=== PATIENT | female | born 1955 | race Hispanic/Latino ===

== ENCOUNTER 2018-12-13 17:00 | Inpatient (IN) | payer OTHER ==
--- NOTE | 2018-12-13 17:35 | ED PDOC ---
Arrival/HPI - General Historian: Patient - History of Present Illness Narrative History of Present Illness (Text): 12/13/18 17:33 63 y/o female, no significant pmh, nkda, post menopausal, c/o abdominal pain/nausea/vomiting/diarrhea started early this morning. Pt. stated that she had take out food last night, woke up in the middle of the night with multipel episodes of nausea/vomiting/diarrhea along with generalized abdominal pain, admits dizziness after vomiting, no fever or chills, no headache or night sweat, no rash, no numbness or tingling, no palpitation, no chest pain, no other medical or psychological complaints. Past Medical History - Provider Review Nursing Documentation Reviewed: Yes - Infectious Disease Hx of Infectious Diseases: None - Psychiatric Hx Depression: No Hx Emotional Abuse: No Hx Physical Abuse: No Hx Substance Use: No - Surgical History Other/Comment: R FA surgery/cyst removal - Anesthesia Hx Anesthesia: Yes Hx Anesthesia Reactions: No Hx Malignant Hyperthermia: No - Suicidal Assessment Feels Threatened In Home Enviroment: No Family/Social History - Physician Review Nursing Documentation Reviewed: Yes Family/Social History: Unknown Family HX Smoking Status: Never Smoked Hx Alcohol Use: No Hx Substance Use: No Hx Substance Use Treatment: No Allergies/Home Meds Allergies/Adverse Reactions: Allergies No Known Allergies Allergy (Verified 09/17/12 09:28) Home Medications: Home Meds Medication Instructions Recorded Confirmed No Known Home Med 12/13/18 12/13/18 Review of Systems - Review of Systems Constitutional: Fatigue. absent: Fevers Eyes: absent: Vision Changes ENT: absent: Hearing Changes Respiratory: absent: SOB, Cough, Sputum Cardiovascular: absent: Chest Pain Gastrointestinal: Abdominal Pain, Diarrhea, Nausea, Vomiting Musculoskeletal: absent: Arthralgias, Back Pain Skin: absent: Rash, Pruritis Neurological: absent: Headache, Dizziness Psychiatric: absent: Anxiety, Depression, Suicidal Ideation Physical Exam Vital Signs Reviewed: Yes Pain Distress: Moderate - Systems Exam Head: Present: Atraumatic, Normocephalic Pupils: Present: PERRL Extroacular Muscles: Present: EOMI Conjunctiva: Present: Normal Mouth: Present: Moist Mucous Membranes Neck: Present: Normal Range of Motion Respiratory/Chest: Present: Clear to Auscultation, Good Air Exchange. No: Respiratory Distress, Accessory Muscle Use, Wheezes, Decreased Breath Sounds, Rales, Retracting, Rhonchi, Tachypneic, Tender to Palpation Cardiovascular: Present: Regular Rate and Rhythm, Normal S1, S2. No: Murmurs Abdomen: Present: Tenderness (generalized abdomen). No: Distention, Peritoneal Signs, Rebound, Guarding Back: Present: Normal Inspection Upper Extremity: Present: Normal Inspection. No: Cyanosis, Edema Lower Extremity: Present: Normal Inspection. No: Edema Neurological: Present: GCS=15, CN II-XII Intact, Speech Normal, Motor Func Grossly Intact, Gait Normal, Memory Normal Skin: Present: Warm, Dry, Normal Color. No: Rashes Psychiatric: Present: Alert, Oriented x 3, Normal Insight, Normal Concentration Medical Decision Making ED Course and Treatment: 12/13/18 17:47 -labs -CT abdomen and pelvis -EKG -IVF/pepcid/zofran -Observe and reasssess 12/13/18 18:14 -Pt. complaining of dizziness after multiple diarrhea/vomiting, meclizine added, no headache. 12/13/18 21:22 -EKG: NSR @ 90 BPM, no ST elevation or depression, no T wave inversion. -Labs show no acute findings except the following: Lipase 26720 (IVF/pepcid/morphine), amylase 2364 (consistent with pancreatitis), Bili 1.8 with AST 501 and ALT 445 (gallbladder sonogram ordered). -Coag panels are non-significant. -Triglyceride within normal limit. -CT Head No acute intracranial abnormality. -CT abdomen and pelvis Marked acute pancreatitis as described above. Questionable minimal acute cholecystitis. Previously described cholelithiasis noted on the ultrasound examination is not well visualized. CBD dilatation is again noted. A small hiatal hernia is present with mucosal edematous wall thickening of the hiatal hernia consistent with reflux esophagitis/vomiting. Diverticulosis coli of the descending and sigmoid colon without evidence of diverticulitis. A punctate non-obstructing calculus is seen in the lower left r enal pole. Minor atherosclerotic vascular plaquing. A 2.0 cm right ovarian cyst is noted. -Gallbladder sonogram: Gallstones and a distended gall bladder. Dilatation of the distal common bile duct of approximately 1.2 cm. Correlation with nuclear medicine hepatobiliary scan recommended. -Chest xray ER wet read: +RLL infiltrate noted. Rocephine and azithromycin ordered with blood cultures (aspiration??) -UA ordered and no result. -Pt. will need GI and further advancing studies for this dilated CBD. -Case discussed with the night medicine physician Dr. Vera, discussed about the case/labs/radiology result and agreed on the admission plus follow up on any pending labs/radiology studies. Pt. would need advance imaging/GI and surgical consult, discussed with Dr. Vera and medical sales associate, they would follow up the care and consult. - RAD Interpretation Radiology Orders: CT head: EXAM: CT Head without Intravenous Contrast. CLINICAL HISTORY: Dizziness, vomiting TECHNIQUE: Axial computed tomography images of the head/brain without intravenous contrast. 1103.19 mGy-cm COMPARISON: None provided. FINDINGS: BRAIN No acute intraparenchymal hemorrhage. No mass lesion. No CT evidence for acute territorial infarct. No midline shift or extra-axial collections. VENTRICLES: No hydrocephalus. ORBITS: The orbits are unremarkable. SINUSES AND MASTOIDS: The paranasal sinuses and mastoid air cells are clear. BONES: No fracture. SOFT TISSUES: Unremarkable. IMPRESSION: No acute intracranial abnormality. Electronically signed on Dec 13, 2018 8:15:30 PM EST by: Connor Scott M.D., MBA Certified By ABR & CBCCT Fellowship Trained MRI and CT Specialist CT abdomen and pelvis: EXAM: CT Abdomen and Pelvis with IV contrast CLINICAL HISTORY: Vomiting, abdominal pain TECHNIQUE: Axial computed tomography images of the abdomen and pelvis with intravenous contrast. 1154.27 mGy-cm CONTRAST: With; OMNI 350 100 ml COMPARISON: Comparison is made to previous right upper quadrant abdominal ultrasound evaluat ion performed earlier the same date. FINDINGS: LUNG BASES: The lung bases appear clear. No pleural effusions are seen. LIVER: Unremarkable. GALLBLADDER AND BILE DUCTS: The cholelithiasis identified on the previous ultrasound evaluation is not well identified. Some subtle pericholecystic edema is noted which may indicate acute cholecystitis. There is common biliary ductal dilatation also noted as previously described. PANCREAS: Diffuse peripancreatic inflammatory stranding/edema is noted consistent with marked acute pancreatitis. SPLEEN: Unremarkable. ADRENAL GLANDS: Unremarkable. KIDNEYS, URETERS, AND BLADDER: The kidneys appear within normal limits. There is no hydronephrosis or hydroureter. A punctate non-obstructing calculus is noted in the lower left renal pole. The urinary bladder is normal in size and configuration. STOMACH AND BOWEL: A small hiatal hernia is noted. Mucosal wall thickening is seen of the hiatal hernia indicative of reflux esophagitis. No evidence of bowel obstruction. No evidence suggesting enteritis. Diverticulosis coli is seen in the lower descending and sigmoid colon without evidence of diverticulitis. APPENDIX: No evidence of acute appendicitis on CT examination. PERITONEUM: No free fluid. No free air. LYMPH NODES: No lymphadenopathy is evident. REPRODUCTIVE: A 2.0 x 1.9 cm right ovarian cyst is noted. Otherwise, unremarkable as visualized. VASCULATURE: No evidence of abdominal aortic aneurysm. Minor atheromatous vascular plaquing is present. BONES: No aggressive appearing osseous lesion. No acute osseous pathology evident. IMPRESSION: 1. Marked acute pancreatitis as described above. 2. Questionable minimal acute cholecystitis. Previously described cholelithiasis noted on the ultrasound examination is not well visualized. CBD dilatation is again noted. 3. A small hiatal hernia is present with mucosal edematous wall thickening of the hiatal hernia consistent with reflux esophagitis/vomiting. 4. Diverticulosis coli of the descending and sigmoid colon without evidence of diverticulitis. 5. A punctate non-obstructing calculus is seen in the lower left renal pole. 6. Minor atherosclerotic vascular plaquing. 7. A 2.0 cm right ovarian cyst is noted. Electronically signed on Dec 13, 2018 8:40:05 PM EST by: Connor Scott M.D., JAMAR Certified By ABR & CBCCT Fellowship Trained MRI and CT Specialist Gallbladder sonogram: EXAM: US Abdomen, Right Upper Quadrant. CLINICAL HISTORY: Gb and hepatic r/o cholecystitis TECHNIQUE: Right upper quadrant sonography performed with image documentation. COMPARISON: None provided. FINDINGS: LIVER: Within normal limits in size and echogenicity. No mass. GALLBLADDER: The gallbladder appears distended with gallstones. There is no significant gallbladder wall thickening or pericholecystic fluid. COMMON BILE DUCT: There is dilatation of the distal common bile duct of approximately 1.2 cm.. PANCREAS: The distal pancreas is obscured by bowel gas. The visualized portion of the pancreas appears within normal limits. RIGHT KIDNEY: Unremarkable. Normal renal contours. No renal mass or calculus. No hydronephrosis. IMPRESSION: Gallstones and a distended gall bladder. Dilatation of the distal common bile duct of approximately 1.2 cm. Correlation with nuclear medicine hepatobiliary scan recommended. Electronically signed on Dec 13, 2018 8:02:31 PM EST by: Shahid Cedeno M.D., Certified by ABR, Diagnostic Radiology Chest xray: Dam Worker: Radiologist - EKG Interpretation EKG Interpretation (Text): 12/13/18 19:21 -EKG: NSR @ 90 BPM, no ST elevation or depression, no T wave inversion. Interpreted by ED Physician: Yes Type: 12 lead EKG - PA / DIRECTOR OF DISTRIBUTION / Resident Statement MD/DO has reviewed & agrees with the documentation as recorded. Disposition/Present on Arrival - Present on Arrival Any Indicators Present on Arrival: No History of DVT/PE: No History of Uncontrolled Diabetes: No Urinary Catheter: No History of Decub. Ulcer: No History Surgical Site Infection Following: None - Disposition Have Diagnosis and Disposition been Completed?: Yes Diagnosis: Pancreatitis, Transaminitis, Common bile duct dilatation, Cholelithiasis, Pneumonia Disposition: HOME/ ROUTINE Disposition Time: 20:12 Patient Plan: Admission, Observation Patient Problems: Current Active Problems Problem Status Onset Pancreatitis Acute Transaminitis Acute Common bile duct dilatation Acute Cholelithiasis Acute Condition: GUARDED
[2018-12-13] MEDS ORDERED: Sodium Chloride 0.9% 1,000 ML IV STA (17:59)
[2018-12-13 18:09] VITALS: BMI 26.6
[2018-12-13 18:16] LABS: BASO # 0.02 K/mm3 (0.0-2.0); BASO % 0.2 % (0.0-3.0); HEMOGLOBIN 14.5 g/dL (12.0-16.0); LYMPH # 1.1 (1.2-3.4); LYMPH % 10.1 % (22.0-35.0); MEAN CELL VOLUME 86.5 fl (80.0-105.0); MEAN CORPUSCULAR HEMOGLOBIN 28.8 pg (25.0-35.0); MEAN CORPUSCULAR HGB CONC 33.3 g/dl (31.0-37.0); MEAN PLATELET VOLUME 9.5 fl (7.0-11.0); MONO # 0.5 (0.1-0.6); MONO % 4.2 % (1.0-6.0); RBC 5.04 10^6/uL (3.5-6.1); RED CELL DISTRIBUTION WIDTH 13.3 % (11.5-14.5); WHITE BLOOD COUNT 10.7 10^3/uL (4.5-11.0)
[2018-12-13 18:29] LABS: ALB/GLOB RATIO 1.2 (1.1-1.8); ALT/SGPT 445 U/L (7-56); AST/SGOT 501 U/L (14-36); BLOOD UREA NITROGEN 15 mg/dL (7-21); CALCIUM 10.2 mg/dL (8.4-10.5); GFR NON-AFRICAN AMERICAN > 60
[2018-12-13 18:41] LABS: TROPONIN I < 0.01 ng/mL
[2018-12-13] MEDS ORDERED: Iohexol 350 MG/100 ML VIAL ONE (18:58)
[2018-12-13 19:01] LABS: LIPASE 24209 U/L (23-300)
[2018-12-13] MEDS ORDERED: Morphine 4 mg/ml ISec IVP STA (19:03)
[2018-12-13] MEDS ORDERED: Sodium Chloride 0.9% 500 ML IV STA (19:17)
[2018-12-13] MEDS ORDERED: Sodium Chloride 0.9% 1,000 ML IV SCH (19:30)
[2018-12-13 19:45] LABS: INR 1.08; PARTIAL THROMBOPLASTIN TIME 29.9 Seconds (26.9-38.3)
[2018-12-13 19:49] LABS: HDL CHOLESTEROL 76 mg/dL (29-60)
[2018-12-13 19:58] LABS: AMYLASE 2364 U/L (35-125); LDL CHOLESTEROL 118 mg/dL (0-129)
--- NOTE | 2018-12-13 21:47 | CP.PCM.HP ---
<Marisela Parada - Last Filed: 12/13/18 23:29> History of Present Illness - History of Present Illness History of Present Illness: Resident History & Physical for Hospitalist Service Patient is a 63 year old female with no significant past medical history presenting with chief complaint of epigastric abdominal pain which began last night and woke her up from sleep. Pain is constant and radiates to the back. Patient also admits to associated nausea, non bloody nonbilious vomiting, and four episodes of diarrhea. She denies headache, dizziness, fevers, chills, chest pain, shortness of breath, dysuria. PMH: none PSH: RUE cyst removal SHx: denies alcohol, tobacco, illicit drug use Allergies: NKDA PMD: none Present on Admission - Present on Admission Any Indicators Present on Admission: No Review of Systems - Review of Systems All systems: reviewed and no additional remarkable complaints except (as stated in HPI) Past Patient History - Infectious Disease Hx of Infectious Diseases: None - Past Social History Smoking Status: Never Smoked - PSYCHIATRIC Hx Depression: No Hx Emotional Abuse: No Hx Physical Abuse: No Hx Substance Use: No - SURGICAL HISTORY Other/Comment: R FA surgery/cyst removal - ANESTHESIA Hx Anesthesia: Yes Hx Anesthesia Reactions: No Hx Malignant Hyperthermia: No Meds Allergies/Adverse Reactions: Allergies Allergy/AdvReac Type Severity Reaction Status Date / Time No Known Allergies Allergy Verified 09/17/12 09:28 Physical Exam - Constitutional Appears: Non-toxic, No Acute Distress - Head Exam Head Exam: ATRAUMATIC, NORMOCEPHALIC - Eye Exam Eye Exam: EOMI, PERRL - ENT Exam ENT Exam: Mucous Membranes Moist - Neck Exam Neck exam: Positive for: Full Rom - Respiratory Exam Respiratory Exam: Clear to Auscultation Bilateral, NORMAL BREATHING PATTERN. absent: Rales, Rhonchi, Wheezes - Cardiovascular Exam Cardiovascular Exam: RRR, +S1, +S2. absent: Tachycardia - GI/Abdominal Exam GI & Abdominal Exam: Normal Bowel Sounds, Soft, Tenderness (LUQ). absent: Distended, Firm, Guarding, Rebound, Rigid - Extremities Exam Extremities exam: Positive for: normal capillary refill, normal inspection, pedal pulses present. Negative for: pedal edema, tenderness - Neurological Exam Neurological exam: Alert, CN II-XII Intact, Oriented x3 - Psychiatric Exam Psychiatric exam: Normal Affect, Normal Mood - Skin Skin Exam: Dry, Warm Results - Vital Signs Recent Vital Signs: Last Vital Signs Temp 98.3 F 12/13/18 17:49 Pulse 79 12/13/18 21:25 Resp 18 12/13/18 21:25 BP 135/61 12/13/18 21:25 Pulse Ox 98 12/13/18 21:25 - Labs Result Diagrams: 12/13/18 18:00 12/13/18 18:00 Labs: Laboratory Results - last 24 hr 12/13/18 12/13/18 12/13/18 18:00 18:00 18:35 WBC 10.7 RBC 5.04 Hgb 14.5 Hct 43.6 MCV 86.5 MCH 28.8 MCHC 33.3 RDW 13.3 Plt Count 238 MPV 9.5 Neut % (Auto) 85.5 H Lymph % (Auto) 10.1 L [place] % (Auto) 4.2 Eos % (Auto) 0.0 L Baso % (Auto) 0.2 Lymph # (Auto) 1.1 L [place] # (Auto) 0.5 Eos # (Auto) 0.0 Baso # (Auto) 0.02 Absolute Neuts (auto) 9.18 H PT INR APTT Sodium 141 Potassium 3.7 Chloride 104 Carbon Dioxide 29 Anion Gap 12 BUN 15 Creatinine 0.8 Est GFR ( Amer) > 60 Est GFR (Non-Af Amer) > 60 Random Glucose 147 H Calcium 10.2 Magnesium 2.0 Total Bilirubin 1.8 H AST 501 H ALT 445 H Alkaline Phosphatase 124 Troponin I < 0.01 Total Protein 9.3 H Albumin 5.0 H Globulin 4.2 Albumin/Globulin Ratio 1.2 Triglycerides 113 Cholesterol 240 H LDL Cholesterol Direct 118 HDL Cholesterol 76 H Amylase 2364 H Lipase 01889 H 12/13/18 18:35 WBC RBC Hgb Hct MCV MCH MCHC RDW Plt Count MPV Neut % (Auto) Lymph % (Auto) [place] % (Auto) Eos % (Auto) Baso % (Auto) Lymph # (Auto) [place] # (Auto) Eos # (Auto) Baso # (Auto) Absolute Neuts (auto) PT 12.0 INR 1.08 APTT 29.9 Sodium Potassium Chloride Carbon Dioxide Anion Gap BUN Creatinine Est GFR ( Amer) Est GFR (Non-Af Amer) Random Glucose Calcium Magnesium Total Bilirubin AST ALT Alkaline Phosphatase Troponin I Total Protein Albumin Globulin Albumin/Globulin Ratio Triglycerides Cholesterol LDL Cholesterol Direct HDL Cholesterol Amylase Lipase Assessment & Plan - Assessment and Plan (Free Text) Assessment: Patient is a 63 year old female with no significant past medical history presenting with chief complaint of epigastric abdominal pain with associated vomiting and diarrhea, admitted for workup and management of pancreatitis. Plan: Pancreatitis - NS 1.5 L and morphine given in ED - NPO - LR @ 100 ccs/hr - 15 mg Toradol IVP Q6 PRN for pain - 4 mg Zofran IV Q6 PRN - lipase in AM - GI and surgery consulted. Appreciate recs. CXR infiltrate - afebrile, no leukocytosis - patient denies cough - likely aspiration pneumonia - s/p Rocephin and azithromycin in ED - continue Rocephin and azithromycin - followup procal, cultures PPX - SCDs Case discussed with Dr. Jody Parada PGY-1 <Liane Vera - Last Filed: 12/14/18 00:13> Results - Vital Signs Recent Vital Signs: Last Vital Signs Temp 98.3 F 12/13/18 17:49 Pulse 81 12/13/18 23:35 Resp 16 12/13/18 23:35 BP 128/65 12/13/18 23:35 Pulse Ox 100 12/13/18 23:35 - Labs Result Diagrams: 12/13/18 18:00 12/13/18 18:00 Labs: Laboratory Results - last 24 hr 12/13/18 12/13/18 12/13/18 18:00 18:00 18:00 WBC 10.7 RBC 5.04 Hgb 14.5 Hct 43.6 MCV 86.5 MCH 28.8 MCHC 33.3 RDW 13.3 Plt Count 238 MPV 9.5 Neut % (Auto) 85.5 H Lymph % (Auto) 10.1 L [place] % (Auto) 4.2 Eos % (Auto) 0.0 L Baso % (Auto) 0.2 Lymph # (Auto) 1.1 L [place] # (Auto) 0.5 Eos # (Auto) 0.0 Baso # (Auto) 0.02 Absolute Neuts (auto) 9.18 H PT INR APTT Sodium 141 Potassium 3.7 Chloride 104 Carbon Dioxide 29 Anion Gap 12 BUN 15 Creatinine 0.8 Est GFR ( Amer) > 60 Est GFR (Non-Af Amer) > 60 Random Glucose 147 H Calcium 10.2 Magnesium 2.0 Total Bilirubin 1.8 H AST 501 H ALT 445 H Alkaline Phosphatase 124 Troponin I < 0.01 Total Protein 9.3 H Albumin 5.0 H Globulin 4.2 Albumin/Globulin Ratio 1.2 Triglycerides Cholesterol LDL Cholesterol Direct HDL Cholesterol Amylase Lipase 47498 H Alcohol, Quantitative < 10 12/13/18 12/13/18 18:35 18:35 WBC RBC Hgb Hct MCV MCH MCHC RDW Plt Count MPV Neut % (Auto) Lymph % (Auto) [place] % (Auto) Eos % (Auto) Baso % (Auto) Lymph # (Auto) [place] # (Auto) Eos # (Auto) Baso # (Auto) Absolute Neuts (auto) PT 12.0 INR 1.08 APTT 29.9 Sodium Potassium Chloride Carbon Dioxide Anion Gap BUN Creatinine Est GFR ( Amer) Est GFR (Non-Af Amer) Random Glucose Calcium Magnesium Total Bilirubin AST ALT Alkaline Phosphatase Troponin I Total Protein Albumin Globulin Albumin/Globulin Ratio Triglycerides 113 Cholesterol 240 H LDL Cholesterol Direct 118 HDL Cholesterol 76 H Amylase 2364 H Lipase Alcohol, Quantitative Attending/Attestation - Attestation I have personally seen and examined this patient.: Yes I have fully participated in the care of the patient.: Yes I have reviewed all pertinent clinical information: Yes
[2018-12-13] MEDS ORDERED: Azithromycin 500MG/NS 250ml 500 MG/250 ML BAG IVPB STA (22:45)
[2018-12-13] MEDS ORDERED: cefTRIAXone 1 gm 1 GM/100 ML BAG IVPB STA (22:45)
[2018-12-13] MEDS: Lactated Ringer's 1,000 ML IV SCH (23:06)
--- NOTE | 2018-12-14 00:11 | CP.PCM.CON ---
History of Present Illness - History of Present Illness History of Present Illness: General Surgery Consult Re: Acute pancreatitis HPI: 63F presented with epigastric abdominal pain associated with nausea and emesis of food which began last night and woke her up from sleep. Pain is constant and radiates to the back. + diarrhea x 4, no blood, dark color. Never had pain so severe before. Denies headache, dizziness, fevers, chills, chest pain, SOB, dysuria, hematuria, hematemesis, hematochezia, melena. PMH: Denies PSH: R forearm cyst removal SH: Denies tobacco, EtOH and drug use FH: Noncontributory All: NKDA Meds: Denies Review of Systems - Review of Systems All systems: reviewed and no additional remarkable complaints except (as per HPI) Past Patient History - Infectious Disease Hx of Infectious Diseases: None - Past Social History Smoking Status: Never Smoked - PSYCHIATRIC Hx Depression: No Hx Emotional Abuse: No Hx Physical Abuse: No Hx Substance Use: No - SURGICAL HISTORY Other/Comment: R FA surgery/cyst removal - ANESTHESIA Hx Anesthesia: Yes Hx Anesthesia Reactions: No Hx Malignant Hyperthermia: No Meds Allergies/Adverse Reactions: Allergies Allergy/AdvReac Type Severity Reaction Status Date / Time No Known Allergies Allergy Verified 09/17/12 09:28 - Medications Medications: Current Medications Azithromycin (Zithromax 500mg In Ns) 500 mg in 250 mls @ 167 mls/hr IVPB STAT STA; Protocol Stop: 12/14/18 00:14 Lactated Ringer's (Lactated Ringer's) 1,000 mls @ 100 mls/hr IV .Q10H SHAE Last Admin: 12/13/18 23:06 Dose: 100 mls/hr Ceftriaxone Sodium (Rocephin 1 Gram Ivpb) 1 gm in 100 mls @ 100 mls/hr IVPB DAILY SHAE; Protocol Azithromycin 250 mg/ Sodium (Chloride) 250 mls @ 167 mls/hr IVPB DAILY SHAE; Protocol Ketorolac Tromethamine (Toradol) 15 mg IVP Q6 PRN PRN Reason: Pain, moderate (4-7) Ondansetron HCl (Zofran Inj) 4 mg IVP Q4H PRN PRN Reason: Nausea/Vomiting Pantoprazole Sodium (Protonix Inj) 40 mg IVP DAILY SHAE Physical Exam - Constitutional Appears: Non-toxic, No Acute Distress - Head Exam Head Exam: ATRAUMATIC, NORMOCEPHALIC - Eye Exam Eye Exam: EOMI. absent: Scleral icterus - ENT Exam ENT Exam: Mucous Membranes Dry Additional comments: trachea midline - Neck Exam Neck exam: Positive for: Full Rom. Negative for: Lymphadenopathy - Respiratory Exam Respiratory Exam: NORMAL BREATHING PATTERN. absent: Accessory Muscle Use, Respiratory Distress - Cardiovascular Exam Cardiovascular Exam: +S1, +S2 - GI/Abdominal Exam GI & Abdominal Exam: Soft, Tenderness (in epigastrum and R back). absent: Distended, Firm, Guarding, Rebound, Rigid - Rectal Exam Rectal Exam: Deferred - Extremities Exam Extremities exam: Positive for: normal capillary refill, pedal pulses present. Negative for: calf tenderness - Back Exam Back exam: CVA tenderness (R) (mild). absent: CVA tenderness (L) - Neurological Exam Neurological exam: Alert, Oriented x3 - Skin Skin Exam: Dry, Warm Results - Vital Signs Recent Vital Signs: Last Vital Signs Temp 98.3 F 12/13/18 17:49 Pulse 81 12/13/18 23:35 Resp 16 12/13/18 23:35 BP 128/65 12/13/18 23:35 Pulse Ox 100 12/13/18 23:35 - Labs Result Diagrams: 12/13/18 18:00 12/13/18 18:00 Labs: Laboratory Results - last 24 hr 12/13/18 12/13/18 12/13/18 18:00 18:00 18:00 WBC 10.7 RBC 5.04 Hgb 14.5 Hct 43.6 MCV 86.5 MCH 28.8 MCHC 33.3 RDW 13.3 Plt Count 238 MPV 9.5 Neut % (Auto) 85.5 H Lymph % (Auto) 10.1 L [place] % (Auto) 4.2 Eos % (Auto) 0.0 L Baso % (Auto) 0.2 Lymph # (Auto) 1.1 L [place] # (Auto) 0.5 Eos # (Auto) 0.0 Baso # (Auto) 0.02 Absolute Neuts (auto) 9.18 H PT INR APTT Sodium 141 Potassium 3.7 Chloride 104 Carbon Dioxide 29 Anion Gap 12 BUN 15 Creatinine 0.8 Est GFR ( Amer) > 60 Est GFR (Non-Af Amer) > 60 Random Glucose 147 H Calcium 10.2 Magnesium 2.0 Total Bilirubin 1.8 H AST 501 H ALT 445 H Alkaline Phosphatase 124 Troponin I < 0.01 Total Protein 9.3 H Albumin 5.0 H Globulin 4.2 Albumin/Globulin Ratio 1.2 Triglycerides Cholesterol LDL Cholesterol Direct HDL Cholesterol Amylase Lipase 08008 H Alcohol, Quantitative < 10 12/13/18 12/13/18 18:35 18:35 WBC RBC Hgb Hct MCV MCH MCHC RDW Plt Count MPV Neut % (Auto) Lymph % (Auto) [place] % (Auto) Eos % (Auto) Baso % (Auto) Lymph # (Auto) [place] # (Auto) Eos # (Auto) Baso # (Auto) Absolute Neuts (auto) PT 12.0 INR 1.08 APTT 29.9 Sodium Potassium Chloride Carbon Dioxide Anion Gap BUN Creatinine Est GFR ( Amer) Est GFR (Non-Af Amer) Random Glucose Calcium Magnesium Total Bilirubin AST ALT Alkaline Phosphatase Troponin I Total Protein Albumin Globulin Albumin/Globulin Ratio Triglycerides 113 Cholesterol 240 H LDL Cholesterol Direct 118 HDL Cholesterol 76 H Amylase 2364 H Lipase Alcohol, Quantitative - Imaging and Cardiology CT scan - abdomen Status: Image reviewed by me, Report reviewed by me US - abdomen Status: Image reviewed by me, Report reviewed by me Assessment & Plan - Assessment and Plan (Free Text) Assessment: 63F with acute pancreatitis, from repeated emesis vs gallstone Plan: No signs of cholecystitis or biliary obstruction at this time. Monitor labs IVF Analgesia Zofran Will plan for possible OR after symptoms resolve Will D/W Dr. Julio Cesar Be PGY4
[2018-12-14 07:17] LABS: BASO # 0.01 K/mm3 (0.0-2.0); BASO % 0.1 % (0.0-3.0); EOS % 0.4 % (1.5-5.0); LYMPH # 1.9 (1.2-3.4); LYMPH % 21.3 % (22.0-35.0); MEAN CELL VOLUME 86.8 fl (80.0-105.0); MEAN CORPUSCULAR HEMOGLOBIN 28.7 pg (25.0-35.0); MEAN CORPUSCULAR HGB CONC 33.1 g/dl (31.0-37.0); MEAN PLATELET VOLUME 9.6 fl (7.0-11.0); MONO # 0.6 (0.1-0.6); MONO % 6.7 % (1.0-6.0); RBC 4.25 10^6/uL (3.5-6.1); RED CELL DISTRIBUTION WIDTH 13.7 % (11.5-14.5)
[2018-12-14 07:25] LABS: HEMOGLOBIN 12.2 g/dL (12.0-16.0)
[2018-12-14 07:39] LABS: ALB/GLOB RATIO 1.2 (1.1-1.8); ALBUMIN 4.1 g/dL (3.0-4.8); ALT/SGPT 389 U/L (7-56); AST/SGOT 302 U/L (14-36); BLOOD UREA NITROGEN 11 mg/dL (7-21); CALCIUM 9.1 mg/dL (8.4-10.5); GFR NON-AFRICAN AMERICAN > 60
[2018-12-14 08:10] LABS: LIPASE 7844 U/L (23-300)
--- NOTE | 2018-12-14 08:31 | CT ---
Date of service: 12/13/2018 PROCEDURE: CT HEAD WITHOUT CONTRAST. HISTORY: Dizziness and vomiting. COMPARISON: None available. TECHNIQUE: Axial computed tomography images were obtained through the head/brain without intravenous contrast. Supplemental Coronal and Sagittal projections created and reviewed. Radiation dose: Total exam DLP = 1103.19 mGy-cm. This CT exam was performed using one or more of the following dose reduction techniques: Automated exposure control, adjustment of the mA and/or kV according to patient size, and/or use of iterative reconstruction technique. FINDINGS: HEMORRHAGE: No intracranial hemorrhage. BRAIN: No mass effect or edema. No atrophy or chronic microvascular ischemic changes. VENTRICLES: Unremarkable. No hydrocephalus. CALVARIUM: Unremarkable. PARANASAL SINUSES: Unremarkable as visualized. No significant inflammatory changes. MASTOID AIR CELLS: Unremarkable as visualized. No inflammatory changes. OTHER FINDINGS: None. IMPRESSION: No acute intracranial abnormalities. No significant findings to account for the clinical presentation. Concordant results (preliminary interpretation) provided by [id number]. Procedure Completed: 19:51. Preliminary Report: Dictated and Authenticated: 20:15. Final Interpretation: 08:28. December 14, 2018
[2018-12-14] MEDS: Sodium Chloride 0.9% 1,000 ML IV SCH ×3 (08:34→23:00)
--- NOTE | 2018-12-14 08:44 | CT ---
Date of service: 12/13/2018 PROCEDURE: CT Abdomen and Pelvis with contrast HISTORY: generalized abdominal pain, n/v/d COMPARISON: 2018. Abdominal ultrasound TECHNIQUE: Intravenous contrast dose: 100 cc Omnipaque 350. Radiation dose: Total exam DLP = 1154.27 mGy-cm. This CT exam was performed using one or more of the following dose reduction techniques: Automated exposure control, adjustment of the mA and/or kV according to patient size, and/or use of iterative reconstruction technique. FINDINGS: LOWER THORAX: Unremarkable. LIVER: Mild hepatic steatosis. Dilatation of intrahepatic biliary radicles. Dilated common bile duct. No visible common duct stones. GALLBLADDER AND BILE DUCTS: Cholelithiasis without CT evidence of acute cholecystitis. PANCREAS: Edematous pancreas, peripancreatic fluid. Findings indicate acute pancreatitis. No CT evidence of necrotizing pancreatitis. SPLEEN: Unremarkable. ADRENALS: Unremarkable. No mass. KIDNEYS AND URETERS: Unremarkable. No hydronephrosis. No solid mass. Incidental finding(s): Nonobstructing 2 mm calculus lower pole left kidney. VASCULATURE: Unremarkable. No aortic aneurysm. No atherosclerotic calcification or mural plaque present. BOWEL: Diverticulosis without an acute inflammatory component or other associated pathologic process. APPENDIX: No abnormalities to suggest acute appendicitis. No right lower quadrant inflammatory processes identified. PERITONEUM: Unremarkable. No free fluid. No free air. LYMPH NODES: Unremarkable. No enlarged lymph nodes. BLADDER: Unremarkable. REPRODUCTIVE: Unremarkable. BONES: No acute fracture. OTHER FINDINGS: None. IMPRESSION: Acute/severe pancreatitis. No evidence of necrotizing pancreatitis. Cholelithiasis without CT evidence of acute cholecystitis. Dilated common bile duct and intrahepatic biliary radicles without visible intraductal obstructing lesion. Additional benign and/or incidental findings described above. Concordant results (preliminary interpretation) provided by [facility] [employer] Procedure Completed: 19:57. Preliminary Report: Dictated and Authenticated: 20:40. Final Interpretation: 08:40. December 14, 2018
--- NOTE | 2018-12-14 09:22 | CARD ---
APPROVED REPORT Date of service: 12/13/2018 EKG Measurement Heart [id number] [id number] <Conclusion> Poor data quality, interpretation may be adversely affected Normal sinus rhythm Normal ECG
--- NOTE | 2018-12-14 09:48 | US ---
Date of service: 12/13/2018 HISTORY: evaluate for any cholecystitis COMPARISON: 2018. CT abdomen and pelvis TECHNIQUE: Sonographic evaluation of the right upper quadrant of the abdomen. FINDINGS: LIVER: Measures 15.0 cm in length. Normal echogenicity of the liver parenchyma. No mass. No intrahepatic bile duct dilatation. GALLBLADDER: Cholelithiasis. Negative study for gallbladder wall thickening, pericholecystic fluid, sonographic Hearn's sign. Distended gallbladder. COMMON BILE DUCT: Measures 12.1 mm. Dilated common duct and intrahepatic bile ducts is visualized. Similar findings identified on recent CT scan. PANCREAS: Findings of acute pancreatitis apparent on the recent CT scan are not appreciated the study. RIGHT KIDNEY: Measures 3.8 x 10.4 cm in length. Normal echogenicity. No calculus, mass, or hydronephrosis. AORTA: No aneurysmal dilatation. IVC: Unremarkable. OTHER FINDINGS: None . IMPRESSION: Cholelithiasis. No sonographic evidence of acute cholecystitis. Dilated common bile duct. Concordant findings (preliminary report) provided by [facility].
--- NOTE | 2018-12-14 10:00 | RAD ---
Date of service: 12/13/2018 HISTORY: medical clearance COMPARISON: 04/20/2016 FINDINGS: LUNGS: Minimal patchy infiltrate at the right lung base PLEURA: No significant pleural effusion identified, no pneumothorax apparent. CARDIOVASCULAR: No aortic atherosclerotic calcification present. Normal cardiac size. No pulmonary vascular congestion. OSSEOUS STRUCTURES: No significant abnormalities. VISUALIZED UPPER ABDOMEN: Normal. OTHER FINDINGS: None. IMPRESSION: Patchy infiltrate right lung base
[2018-12-14] MEDS: cefTRIAXone 1 gm 1 GM/100 ML BAG IVPB SCH (10:05)
[2018-12-14] MEDS: Azithromycin 250 MG in Sodium Chloride 0.9% 250 ML IVPB SCH (10:05)
--- NOTE | 2018-12-14 11:02 | CP.PCM.CON ---
<Glo Hayes - Last Filed: 12/14/18 11:19> History of Present Illness - History of Present Illness History of Present Illness: PGY5 Initial GI Consult Note Kristal Preciado is a 63F w/ no sig hx who presented to the ER with complaints of epigastric pain. Pt states that the onset was 2 days prior and sudden onset. Pt states that the pain reached to 8 out of 10 and became persistent. Pt came to the Er for further evaluation. Pt also noted watery diarrhea x2 and vomiting x2, non bloody. Initial CT abd revealed, pancreatitis, cholelithiasis and dilated CBD. She denies any ETOH use and prior episodes of pancreatitis. Upon evaluation, pt was found to have an elevated lipase >24k. Pt denies any pain in the AM and has been NPO since admission. PMH: Denies PSH: R forearm cyst removal SH: Denies tobacco, EtOH and drug use FH: Noncontributory Endo Hx: Denies ROS: 12 point ROS conducted, neg other than above Past Patient History - Infectious Disease Hx of Infectious Diseases: None - Past Social History Smoking Status: Current Some Days Smoker - CARDIAC Hx Cardiac Disorders: No - PULMONARY Hx Respiratory Disorders: Yes Hx Pneumonia: Yes - NEUROLOGICAL Hx Neurological Disorder: No - HEENT Hx HEENT Problems: No - RENAL Hx Chronic Kidney Disease: No - ENDOCRINE/METABOLIC Hx Endocrine Disorders: No - HEMATOLOGICAL/ONCOLOGICAL Hx Blood Disorders: No - INTEGUMENTARY Hx Dermatological Problems: No - MUSCULOSKELETAL/RHEUMATOLOGICAL Hx Musculoskeletal Disorders: No Hx Falls: No - GASTROINTESTINAL Hx Gastrointestinal Disorders: No - GENITOURINARY/GYNECOLOGICAL Hx Genitourinary Disorders: No - PSYCHIATRIC Hx Psychophysiologic Disorder: No Hx Depression: No Hx Emotional Abuse: No Hx Physical Abuse: No Hx Substance Use: No - SURGICAL HISTORY Hx Surgeries: Yes Other/Comment: R FA surgery/cyst removal - ANESTHESIA Hx Anesthesia: Yes Hx Anesthesia Reactions: No Hx Malignant Hyperthermia: No Meds Allergies/Adverse Reactions: Allergies Allergy/AdvReac Type Severity Reaction Status Date / Time No Known Allergies Allergy Verified 09/17/12 09:28 - Medications Medications: Current Medications Lactated Ringer's (Lactated Ringer's) 1,000 mls @ 100 mls/hr IV .Q10H [facility] Last Admin: 12/13/18 23:06 Dose: 100 mls/hr Ceftriaxone Sodium (Rocephin 1 Gram Ivpb) 1 gm in 100 mls @ 100 mls/hr IVPB DAILY [facility]; Protocol Last Admin: 12/14/18 10:05 Dose: 100 mls/hr Azithromycin 250 mg/ Sodium (Chloride) 250 mls @ 167 mls/hr IVPB DAILY [facility]; Protocol Last Admin: 12/14/18 10:05 Dose: 167 mls/hr Sodium Chloride (Sodium Chloride 0.9%) 1,000 mls @ 125 mls/hr IV .Q8H [facility] Last Admin: 12/14/18 08:34 Dose: 125 mls/hr Ketorolac Tromethamine (Toradol) 15 mg IVP Q6 PRN PRN Reason: Pain, moderate (4-7) Last Admin: 12/14/18 10:52 Dose: 15 mg Ondansetron HCl (Zofran Inj) 4 mg IVP Q4H PRN PRN Reason: Nausea/Vomiting Pantoprazole Sodium (Protonix Inj) 40 mg IVP DAILY [facility] Last Admin: 12/14/18 10:05 Dose: 40 mg Physical Exam - Constitutional Appears: Well, No Acute Distress - Head Exam Head Exam: ATRAUMATIC, NORMOCEPHALIC - Eye Exam Eye Exam: Normal appearance - ENT Exam ENT Exam: Mucous Membranes Moist, Normal Exam - Respiratory Exam Respiratory Exam: Clear to Auscultation Bilateral, NORMAL BREATHING PATTERN. absent: Rales, Rhonchi, Wheezes, Respiratory Distress - Cardiovascular Exam Cardiovascular Exam: REGULAR RHYTHM. absent: +S1, +S2 - GI/Abdominal Exam GI & Abdominal Exam: Normal Bowel Sounds, Soft. absent: Distended, Firm, Guarding, Organomegaly, Rebound, Rigid, Tenderness - Extremities Exam Extremities exam: Negative for: joint swelling, pedal edema - Neurological Exam Neurological exam: Alert, Oriented x3 - Psychiatric Exam Psychiatric exam: Normal Affect, Normal Mood - Skin Skin Exam: Dry, Intact, Normal Color, Warm Results - Vital Signs Recent Vital Signs: Last Vital Signs Temp 98.2 F 12/14/18 09:09 Pulse 68 12/14/18 09:09 Resp 20 12/14/18 09:09 BP 108/63 12/14/18 09:09 Pulse Ox 95 12/14/18 09:09 - Labs Result Diagrams: 12/14/18 06:45 12/14/18 06:45 Labs: Laboratory Results - last 24 hr 12/13/18 12/13/18 12/13/18 18:00 18:00 18:00 WBC 10.7 RBC 5.04 Hgb 14.5 Hct 43.6 MCV 86.5 MCH 28.8 MCHC 33.3 RDW 13.3 Plt Count 238 MPV 9.5 Neut % (Auto) 85.5 H Lymph % (Auto) 10.1 L Harris % (Auto) 4.2 Eos % (Auto) 0.0 L Baso % (Auto) 0.2 Lymph # (Auto) 1.1 L Harris # (Auto) 0.5 Eos # (Auto) 0.0 Baso # (Auto) 0.02 Absolute Neuts (auto) 9.18 H PT INR APTT Sodium 141 Potassium 3.7 Chloride 104 Carbon Dioxide 29 Anion Gap 12 BUN 15 Creatinine 0.8 Est GFR ( Amer) > 60 Est GFR (Non-Af Amer) > 60 Random Glucose 147 H Calcium 10.2 Phosphorus Magnesium 2.0 Total Bilirubin 1.8 H AST 501 H ALT 445 H Alkaline Phosphatase 124 Troponin I < 0.01 Total Protein 9.3 H Albumin 5.0 H Globulin 4.2 Albumin/Globulin Ratio 1.2 Triglycerides Cholesterol LDL Cholesterol Direct HDL Cholesterol Amylase Lipase 49483 H Alcohol, Quantitative < 10 12/13/18 12/13/18 12/14/18 18:35 18:35 06:45 WBC 9.0 RBC 4.25 Hgb 12.2 D Hct 36.9 MCV 86.8 MCH 28.7 MCHC 33.1 RDW 13.7 Plt Count 226 MPV 9.6 Neut % (Auto) 71.5 H Lymph % (Auto) 21.3 L Harris % (Auto) 6.7 H Eos % (Auto) 0.4 L Baso % (Auto) 0.1 Lymph # (Auto) 1.9 Harris # (Auto) 0.6 Eos # (Auto) 0.0 Baso # (Auto) 0.01 Absolute Neuts (auto) 6.44 PT 12.0 INR 1.08 APTT 29.9 Sodium Potassium Chloride Carbon Dioxide Anion Gap BUN Creatinine Est GFR ( Amer) Est GFR (Non-Af Amer) Random Glucose Calcium Phosphorus Magnesium Total Bilirubin AST ALT Alkaline Phosphatase Troponin I Total Protein Albumin Globulin Albumin/Globulin Ratio Triglycerides 113 Cholesterol 240 H LDL Cholesterol Direct 118 HDL Cholesterol 76 H Amylase 2364 H Lipase Alcohol, Quantitative 12/14/18 06:45 WBC RBC Hgb Hct MCV MCH MCHC RDW Plt Count MPV Neut % (Auto) Lymph % (Auto) Harris % (Auto) Eos % (Auto) Baso % (Auto) Lymph # (Auto) Harris # (Auto) Eos # (Auto) Baso # (Auto) Absolute Neuts (auto) PT INR APTT Sodium 141 Potassium 3.7 Chloride 105 Carbon Dioxide 29 Anion Gap 10 BUN 11 Creatinine 0.8 Est GFR ( Amer) > 60 Est GFR (Non-Af Amer) > 60 Random Glucose 94 Calcium 9.1 Phosphorus 3.4 Magnesium 2.0 Total Bilirubin 0.9 AST 302 H D ALT 389 H Alkaline Phosphatase 98 Troponin I Total Protein 7.6 Albumin 4.1 Globulin 3.5 Albumin/Globulin Ratio 1.2 Triglycerides Cholesterol LDL Cholesterol Direct HDL Cholesterol Amylase Lipase 7844 H Alcohol, Quantitative Assessment & Plan - Assessment and Plan (Free Text) Assessment: Kristal Preciado is a 63F w/ no sig hx who presented to the ER with complaints of epigastric pain. CT Abd: CBD 1.2cm, acute pancreatitis Acute pancreatitis, etiology likely gallstone, r/o TG Dilated CBD Elevated LFTs, improved, likely past a stone Abd pain, resolved, likely past a stone Cholesystitis Plan: -continue IV fluids; NS 125ml/hr, s/p 3L NS -drop in LFTs indicative, likely past stone -would recommend continuing to observe daily LFTs -start clears from GI standpoint -will hold on MRCP or ERCP at this time -surgery on board -will continue to follow -no plan for endoscopic eval at this time D/W Dr. Fu <Kristopher Fu - Last Filed: 12/14/18 13:55> Meds - Medications Medications: Current Medications Lactated Ringer's (Lactated Ringer's) 1,000 mls @ 100 mls/hr IV .Q10H [facility] Last Admin: 12/14/18 13:24 Dose: Not Given Ceftriaxone Sodium (Rocephin 1 Gram Ivpb) 1 gm in 100 mls @ 100 mls/hr IVPB DAILY [facility]; Protocol Last Admin: 12/14/18 10:05 Dose: 100 mls/hr Azithromycin 250 mg/ Sodium (Chloride) 250 mls @ 167 mls/hr IVPB DAILY [facility]; Protocol Last Admin: 12/14/18 10:05 Dose: 167 mls/hr Sodium Chloride (Sodium Chloride 0.9%) 1,000 mls @ 125 mls/hr IV .Q8H [facility] Last Admin: 12/14/18 08:34 Dose: 125 mls/hr Ketorolac Tromethamine (Toradol) 15 mg IVP Q6 PRN PRN Reason: Pain, moderate (4-7) Last Admin: 12/14/18 10:52 Dose: 15 mg Ondansetron HCl (Zofran Inj) 4 mg IVP Q4H PRN PRN Reason: Nausea/Vomiting Pantoprazole Sodium (Protonix Inj) 40 mg IVP DAILY [facility] Last Admin: 12/14/18 10:05 Dose: 40 mg Results - Vital Signs Recent Vital Signs: Last Vital Signs Temp 98.2 F 12/14/18 09:09 Pulse 68 12/14/18 09:09 Resp 20 12/14/18 09:09 BP 108/63 12/14/18 09:09 Pulse Ox 95 12/14/18 09:09 - Labs Result Diagrams: 12/14/18 06:45 12/14/18 06:45 Labs: Laboratory Results - last 24 hr 12/13/18 12/13/18 12/13/18 18:00 18:00 18:00 WBC 10.7 RBC 5.04 Hgb 14.5 Hct 43.6 MCV 86.5 MCH 28.8 MCHC 33.3 RDW 13.3 Plt Count 238 MPV 9.5 Neut % (Auto) 85.5 H Lymph % (Auto) 10.1 L Harris % (Auto) 4.2 Eos % (Auto) 0.0 L Baso % (Auto) 0.2 Lymph # (Auto) 1.1 L Harris # (Auto) 0.5 Eos # (Auto) 0.0 Baso # (Auto) 0.02 Absolute Neuts (auto) 9.18 H PT INR APTT Sodium 141 Potassium 3.7 Chloride 104 Carbon Dioxide 29 Anion Gap 12 BUN 15 Creatinine 0.8 Est GFR ( Amer) > 60 Est GFR (Non-Af Amer) > 60 Random Glucose 147 H Hemoglobin A1c Calcium 10.2 Phosphorus Magnesium 2.0 Total Bilirubin 1.8 H AST 501 H ALT 445 H Alkaline Phosphatase 124 Troponin I < 0.01 Total Protein 9.3 H Albumin 5.0 H Globulin 4.2 Albumin/Globulin Ratio 1.2 Triglycerides Cholesterol LDL Cholesterol Direct HDL Cholesterol Amylase Lipase 48217 H Alcohol, Quantitative < 10 Hepatitis A IgM Ab Hep Bs Antigen Hep B Core IgM Ab Hepatitis C Antibody 12/13/18 12/13/18 12/13/18 18:00 18:35 18:35 WBC RBC Hgb Hct MCV MCH MCHC RDW Plt Count MPV Neut % (Auto) Lymph % (Auto) Harris % (Auto) Eos % (Auto) Baso % (Auto) Lymph # (Auto) Harris # (Auto) Eos # (Auto) Baso # (Auto) Absolute Neuts (auto) PT 12.0 INR 1.08 APTT 29.9 Sodium Potassium Chloride Carbon Dioxide Anion Gap BUN Creatinine Est GFR ( Amer) Est GFR (Non-Af Amer) Random Glucose Hemoglobin A1c Calcium Phosphorus Magnesium Total Bilirubin AST ALT Alkaline Phosphatase Troponin I Total Protein Albumin Globulin Albumin/Globulin Ratio Triglycerides 113 Cholesterol 240 H LDL Cholesterol Direct 118 HDL Cholesterol 76 H Amylase 2364 H Lipase Alcohol, Quantitative Hepatitis A IgM Ab Negative Hep Bs Antigen Negative Hep B Core IgM Ab Negative Hepatitis C Antibody Negative 12/13/18 12/14/18 12/14/18 22:45 06:45 06:45 WBC 9.0 RBC 4.25 Hgb 12.2 D Hct 36.9 MCV 86.8 MCH 28.7 MCHC 33.1 RDW 13.7 Plt Count 226 MPV 9.6 Neut % (Auto) 71.5 H Lymph % (Auto) 21.3 L Harris % (Auto) 6.7 H Eos % (Auto) 0.4 L Baso % (Auto) 0.1 Lymph # (Auto) 1.9 Harris # (Auto) 0.6 Eos # (Auto) 0.0 Baso # (Auto) 0.01 Absolute Neuts (auto) 6.44 PT INR APTT Sodium 141 Potassium 3.7 Chloride 105 Carbon Dioxide 29 Anion Gap 10 BUN 11 Creatinine 0.8 Est GFR ( Amer) > 60 Est GFR (Non-Af Amer) > 60 Random Glucose 94 Hemoglobin A1c 5.8 Calcium 9.1 Phosphorus 3.4 Magnesium 2.0 Total Bilirubin 0.9 AST 302 H D ALT 389 H Alkaline Phosphatase 98 Troponin I Total Protein 7.6 Albumin 4.1 Globulin 3.5 Albumin/Globulin Ratio 1.2 Triglycerides Cholesterol LDL Cholesterol Direct HDL Cholesterol Amylase Lipase 7844 H Alcohol, Quantitative Hepatitis A IgM Ab Hep Bs Antigen Hep B Core IgM Ab Hepatitis C Antibody Attending/Attestation - Attestation I have personally seen and examined this patient.: Yes I have fully participated in the care of the patient.: Yes I have reviewed all pertinent clinical information: Yes Notes (Text): 12/14/18 13:50 I have seen and examined patient with GI fellow. Agree with above documentation with the following additions. In brief, this is a 63 year old female without significant past medical history who presents to hospital with sudden onset abdominal pain which began 2 days ago. She reports sharp epigastric, 8/10 intensity pain that was associated with nausea and non-bloody emesis. She denies NSAID use, fever/chills, weight loss, jaundice, pruritis, or similar prior episodes. Since arrival to hospital her abdominal pain has resolved and she has not had any recurrent vomiting. No prior endoscopic evaluation. Review of vitals from today are normal. Abdominal pain Transaminitis Acute gallstone pancreatitis CT and US imaging reviewed by me showing cholelithiasis, dilated CBD without filling defects - Clear liquid diet as tolerated - LFTs trending down, bilirubin normalized suggestive of passed gallstone. Continue to monitor. - Continue with IVF hydration therapy, supportive care - Patient would benefit from eventual cholecystectomy, follow up surgical recommendations - Will continue to monitor patient clinical course
[2018-12-14 12:42] LABS: HEPATITIS B SURFACE AG Negative (NEGATIVE)
[2018-12-14 12:48] LABS: HEPATITIS A IGM NEGATIVE (NEGATIVE); HEPATITIS B CORE AB NEGATIVE (NEGATIVE)
--- NOTE | 2018-12-14 13:07 | CP.PCM.PN ---
<Bakari Walden - Last Filed: 12/14/18 13:04> Subjective - Date & Time of Evaluation Date of Evaluation: 12/14/18 Time of Evaluation: 13:04 - Subjective Subjective: Internal Medicine Progress Note: Patient seen and assessed at bedside. No acute events overnight. Patient endorses that her abdominal pain has significantly improved and her vomiting has completely resolved since admission. She denies any new complaints and further 12 point ROS unremarkable at this time. Objective - Vital Signs/Intake and Output Vital Signs (last 24 hours): Temp Pulse Resp BP Pulse Ox 98.2 F 68 20 108/63 95 12/14/18 09:09 12/14/18 09:09 12/14/18 09:09 12/14/18 09:09 12/14/18 09:09 Intake and Output: 12/14/18 12/14/18 06:59 18:59 Intake Total 700 Output Total 0 Balance 700 - Medications Medications: Current Medications Lactated Ringer's (Lactated Ringer's) 1,000 mls @ 100 mls/hr IV .Q10H [facility] Last Admin: 12/13/18 23:06 Dose: 100 mls/hr Ceftriaxone Sodium (Rocephin 1 Gram Ivpb) 1 gm in 100 mls @ 100 mls/hr IVPB DAILY [facility]; Protocol Last Admin: 12/14/18 10:05 Dose: 100 mls/hr Azithromycin 250 mg/ Sodium (Chloride) 250 mls @ 167 mls/hr IVPB DAILY [facility]; Protocol Last Admin: 12/14/18 10:05 Dose: 167 mls/hr Sodium Chloride (Sodium Chloride 0.9%) 1,000 mls @ 125 mls/hr IV .Q8H [facility] Last Admin: 12/14/18 08:34 Dose: 125 mls/hr Ketorolac Tromethamine (Toradol) 15 mg IVP Q6 PRN PRN Reason: Pain, moderate (4-7) Last Admin: 12/14/18 10:52 Dose: 15 mg Ondansetron HCl (Zofran Inj) 4 mg IVP Q4H PRN PRN Reason: Nausea/Vomiting Pantoprazole Sodium (Protonix Inj) 40 mg IVP DAILY [facility] Last Admin: 12/14/18 10:05 Dose: 40 mg - Labs Labs: 12/14/18 06:45 12/14/18 06:45 PT 12.0 SECONDS (9.4-12.5) 12/13/18 18:35 INR 1.08 12/13/18 18:35 APTT 29.9 Seconds (26.9-38.3) 12/13/18 18:35 - Constitutional Appears: Non-toxic, No Acute Distress - Head Exam Head Exam: ATRAUMATIC, NORMOCEPHALIC - Eye Exam Eye Exam: EOMI, Normal appearance, PERRL Pupil Exam: NORMAL ACCOMODATION, PERRL - ENT Exam ENT Exam: Mucous Membranes Moist, Normal Exam - Neck Exam Neck Exam: Full ROM, Normal Inspection - Respiratory Exam Respiratory Exam: Clear to Ausculation Bilateral, NORMAL BREATHING PATTERN. absent: Accessory Muscle Use, Chest Wall Tenderness, Decreased Breath Sounds, Prolonged Expiratory Phase, Rales, Rhonchi, Wheezes, Respiratory Distress, Stridor - Cardiovascular Exam Cardiovascular Exam: REGULAR RHYTHM, RRR, +S1, +S2. absent: Bradycardia, Tachycardia, Clicks, Diastolic murmur, Gallop, Irregular Rhythm, JVD, Rubs, +S4, Murmur - GI/Abdominal Exam GI & Abdominal Exam: Soft, Tenderness (Mild epigastric tenderness to deep palpation; interval improvement noted), Normal Bowel Sounds. absent: Distended, Firm, Guarding, Rigid, Mass, Rebound - Extremities Exam Extremities Exam: absent: Calf Tenderness - Neurological Exam Neurological Exam: Alert, Awake, Oriented x3 - Psychiatric Exam Psychiatric exam: Normal Affect, Normal Mood - Skin Skin Exam: Dry, Intact, Normal Color, Warm Assessment and Plan - Assessment and Plan (Free Text) Assessment: 63 year old female with no significant past medical history who presented with abdominal pain and was found to have likely gallstone pancreatitis. Plan: 1. Pancreatitis -CT Abdomen/Pelvis showed acute/severe pancreatitis and cholelithiasis without evidence of cholecystitis -Abdominal US showed a dilated CBD to 1.2cm and, again, cholelithiasis without evidence of cholecystitis -Continue Normal Saline at 125mls/hr -Continue Toradol PRN for pain control -Continue Zofran PRN for N/V -Advanced to clear liquid diet, per GI -GI consulted, all recommendations appreciated; No MRCP/ERCP or endoscopic interventions indicated at this time and can advance to clear liquid diet -Surgery consulted, all recommendations appreciated; Cholecystectomy once symptoms have resolved 2. Right Lung Infiltrate -Chest X-Ray showed right sided patchy infiltrate -Procalcitonin and cultures pending -Continue Rocephin and Zithromax for empiric coverage GI Prophylaxis: Protonix DVT Prophylaxis: SCD's Diet: Clear liquid Code Status: Full Code Patient seen and case discussed with attending, Dr. Crump. Bakari Walden PGY2 <Rafy Crump - Last Filed: 12/14/18 14:42> Objective - Vital Signs/Intake and Output Vital Signs (last 24 hours): Temp Pulse Resp BP Pulse Ox 98.2 F 68 20 108/63 95 12/14/18 09:09 12/14/18 09:09 12/14/18 09:09 12/14/18 09:09 12/14/18 09:09 Intake and Output: 12/14/18 12/14/18 06:59 18:59 Intake Total 700 Output Total 0 Balance 700 - Medications Medications: Current Medications Lactated Ringer's (Lactated Ringer's) 1,000 mls @ 100 mls/hr IV .Q10H [facility] Last Admin: 12/14/18 13:24 Dose: Not Given Ceftriaxone Sodium (Rocephin 1 Gram Ivpb) 1 gm in 100 mls @ 100 mls/hr IVPB DAILY [facility]; Protocol Last Admin: 12/14/18 10:05 Dose: 100 mls/hr Azithromycin 250 mg/ Sodium (Chloride) 250 mls @ 167 mls/hr IVPB DAILY [facility]; Protocol Last Admin: 12/14/18 10:05 Dose: 167 mls/hr Sodium Chloride (Sodium Chloride 0.9%) 1,000 mls @ 125 mls/hr IV .Q8H [facility] Last Admin: 12/14/18 08:34 Dose: 125 mls/hr Ketorolac Tromethamine (Toradol) 15 mg IVP Q6 PRN PRN Reason: Pain, moderate (4-7) Last Admin: 12/14/18 10:52 Dose: 15 mg Ondansetron HCl (Zofran Inj) 4 mg IVP Q4H PRN PRN Reason: Nausea/Vomiting Pantoprazole Sodium (Protonix Inj) 40 mg IVP DAILY [facility] Last Admin: 12/14/18 10:05 Dose: 40 mg - Labs Labs: 12/14/18 06:45 12/14/18 06:45 PT 12.0 SECONDS (9.4-12.5) 12/13/18 18:35 INR 1.08 12/13/18 18:35 APTT 29.9 Seconds (26.9-38.3) 12/13/18 18:35 Attending/Attestation - Attestation I have personally seen and examined this patient.: Yes I have fully participated in the care of the patient.: Yes I have reviewed all pertinent clinical information, including history, physical exam and plan: Yes Notes (Text): 12/14/18 14:39 63 year old female with no significant past medical history who presented with abdominal pain found to have acute gallstone pancreatitis and transaminitis. LFTs are coming down (?passed stone). GI and surgery are following. Will follow up with surgery regarding cholecystectomy. Diet advanced to clear liquids. Continue with iv antibiotics for RLL pneumonia. Rafy Crump MD Hospitalist.
[2018-12-14] MEDS: Lactated Ringer's 1,000 ML IV SCH ×2 (13:24→20:10)
[2018-12-14 13:38] LABS: HEPATITIS C ANTIBODY NEGATIVE (NEGATIVE)
[2018-12-14 18:32] LABS: BARBITURATES, UR NEGATIVE (NEGATIVE); BENZODIAZEPINES, UR NEGATIVE (NEGATIVE); OPIATES, UR POSITIVE (NEGATIVE); PHENCYCLIDINE, UR NEGATIVE (NEGATIVE)
[2018-12-15 06:52] LABS: BASO # 0.02 K/mm3 (0.0-2.0); BASO % 0.3 % (0.0-3.0); EOS # 0.3 (0.0-0.7); EOS % 3.4 % (1.5-5.0); HEMOGLOBIN 11.3 g/dL (12.0-16.0); LYMPH # 1.7 (1.2-3.4); LYMPH % 21.6 % (22.0-35.0); MEAN CELL VOLUME 87.2 fl (80.0-105.0); MEAN CORPUSCULAR HEMOGLOBIN 27.9 pg (25.0-35.0); MEAN PLATELET VOLUME 9.4 fl (7.0-11.0); MONO # 0.5 (0.1-0.6); MONO % 6.8 % (1.0-6.0); RBC 4.05 10^6/uL (3.5-6.1); RED CELL DISTRIBUTION WIDTH 13.5 % (11.5-14.5); WHITE BLOOD COUNT 7.6 10^3/uL (4.5-11.0)
[2018-12-15 07:13] LABS: ALB/GLOB RATIO 1.2 (1.1-1.8); ALBUMIN 3.6 g/dL (3.0-4.8); ALT/SGPT 232 U/L (7-56); AST/SGOT 117 U/L (14-36); BLOOD UREA NITROGEN 8 mg/dL (7-21); CALCIUM 8.9 mg/dL (8.4-10.5); GFR NON-AFRICAN AMERICAN > 60
--- NOTE | 2018-12-15 07:54 | CP.PCM.PN ---
Subjective - Date & Time of Evaluation Date of Evaluation: 12/15/18 Time of Evaluation: 06:50 - Subjective Subjective: Darryn Valdez, PGY-[address] Harrell Patient seen and evaluated at bedside. No acute events reported overnight. Tolerating diet. Denies nausea/vomiting. Urinating and passing flatus without issue. Objective - Vital Signs/Intake and Output Vital Signs (last 24 hours): Temp Pulse Resp BP Pulse Ox 98 F 86 20 115/69 96 12/14/18 20:29 12/14/18 20:29 12/14/18 20:29 12/14/18 20:29 12/14/18 20:29 Intake and Output: 12/15/18 12/15/18 06:59 18:59 Intake Total 2940 Balance 2940 - Medications Medications: Current Medications Lactated Ringer's (Lactated Ringer's) 1,000 mls @ 100 mls/hr IV .Q10H [facility] Last Admin: 12/14/18 20:10 Dose: Not Given Ceftriaxone Sodium (Rocephin 1 Gram Ivpb) 1 gm in 100 mls @ 100 mls/hr IVPB DAILY [facility]; Protocol Last Admin: 12/14/18 10:05 Dose: 100 mls/hr Azithromycin 250 mg/ Sodium (Chloride) 250 mls @ 167 mls/hr IVPB DAILY [facility]; Protocol Last Admin: 12/14/18 10:05 Dose: 167 mls/hr Sodium Chloride (Sodium Chloride 0.9%) 1,000 mls @ 125 mls/hr IV .Q8H [facility] Last Admin: 12/14/18 23:00 Dose: 125 mls/hr Ketorolac Tromethamine (Toradol) 15 mg IVP Q6 PRN PRN Reason: Pain, moderate (4-7) Last Admin: 12/14/18 10:52 Dose: 15 mg Ondansetron HCl (Zofran Inj) 4 mg IVP Q4H PRN PRN Reason: Nausea/Vomiting Pantoprazole Sodium (Protonix Inj) 40 mg IVP DAILY [facility] Last Admin: 12/14/18 10:05 Dose: 40 mg - Labs Labs: 12/15/18 06:20 12/15/18 06:20 PT 12.0 SECONDS (9.4-12.5) 12/13/18 18:35 INR 1.08 12/13/18 18:35 APTT 29.9 Seconds (26.9-38.3) 12/13/18 18:35 - Additional Findings Additional findings: - Constitutional Appears: Non-toxic, No Acute Distress - Head Exam Head Exam: ATRAUMATIC, NORMOCEPHALIC - Eye Exam Eye Exam: EOMI. absent: Scleral icterus - ENT Exam ENT Exam: Mucous Membranes Dry - Neck Exam Neck exam: Positive for: Full Rom. Negative for: Lymphadenopathy - Respiratory Exam Respiratory Exam: NORMAL BREATHING PATTERN. absent: Accessory Muscle Use, Respiratory Distress - Cardiovascular Exam Cardiovascular Exam: +S1, +S2 - GI/Abdominal Exam GI & Abdominal Exam: Soft, Mild Tenderness (in epigastrum radiating to R back). absent: Distended, Firm, Guarding, Rebound, Rigid - Extremities Exam Extremities exam: Positive for: normal capillary refill, pedal pulses present. Negative for: calf tenderness - Back Exam Back exam: absent: CVA tenderness (L), CVA tenderness (R) - Neurological Exam Neurological exam: Alert, Oriented x3 - Skin Skin Exam: Dry, Warm Assessment and Plan - Assessment and Plan (Free Text) Assessment: 63 year old F with acute pancreatitis, likely due to gallstone Plan: Transaminitis and Lipase improving IVF and supportive care Analgesia Tolerating CLD - ADAT Will plan for cholecystectomy later this week when pain/nausea controlled Further recs per Dr. Julio Cesar Valdez, PGY-1
[2018-12-15] MEDS: cefTRIAXone 1 gm 1 GM/100 ML BAG IVPB SCH (09:35)
[2018-12-15] MEDS: Azithromycin 250 MG in Sodium Chloride 0.9% 250 ML IVPB SCH (10:44)
--- NOTE | 2018-12-15 10:51 | CP.PCM.PN ---
<Glo Hayes - Last Filed: 12/15/18 10:51> Subjective - Date & Time of Evaluation Date of Evaluation: 12/15/18 Time of Evaluation: 07:00 - Subjective Subjective: PGY5 GI Follow-up Pt seen and examined bedside Denies any abd pain tolerated clears + BM ROS: 12 point ROS conducted neg other than above Objective - Vital Signs/Intake and Output Vital Signs (last 24 hours): Temp Pulse Resp BP Pulse Ox 98 F 82 19 125/74 94 L 12/15/18 08:29 12/15/18 08:29 12/15/18 08:29 12/15/18 08:29 12/15/18 08:29 Intake and Output: 12/15/18 12/15/18 06:59 18:59 Intake Total 2940 Balance 2940 - Medications Medications: Current Medications Lactated Ringer's (Lactated Ringer's) 1,000 mls @ 100 mls/hr IV .Q10H [facility] Last Admin: 12/14/18 20:10 Dose: Not Given Ceftriaxone Sodium (Rocephin 1 Gram Ivpb) 1 gm in 100 mls @ 100 mls/hr IVPB DAILY [facility]; Protocol Last Admin: 12/15/18 09:35 Dose: 100 mls/hr Azithromycin 250 mg/ Sodium (Chloride) 250 mls @ 167 mls/hr IVPB DAILY [facility]; Protocol Last Admin: 12/15/18 10:44 Dose: 167 mls/hr Sodium Chloride (Sodium Chloride 0.9%) 1,000 mls @ 125 mls/hr IV .Q8H [facility] Last Admin: 12/14/18 23:00 Dose: 125 mls/hr Ketorolac Tromethamine (Toradol) 15 mg IVP Q6 PRN PRN Reason: Pain, moderate (4-7) Last Admin: 12/14/18 10:52 Dose: 15 mg Ondansetron HCl (Zofran Inj) 4 mg IVP Q4H PRN PRN Reason: Nausea/Vomiting Pantoprazole Sodium (Protonix Inj) 40 mg IVP DAILY [facility] Last Admin: 12/15/18 09:35 Dose: 40 mg - Labs Labs: 12/15/18 06:20 12/15/18 06:20 PT 12.0 SECONDS (9.4-12.5) 12/13/18 18:35 INR 1.08 12/13/18 18:35 APTT 29.9 Seconds (26.9-38.3) 12/13/18 18:35 - Constitutional Appears: Well, No Acute Distress - Head Exam Head Exam: ATRAUMATIC, NORMOCEPHALIC - Eye Exam Eye Exam: Normal appearance - ENT Exam ENT Exam: Mucous Membranes Moist - Neck Exam Neck Exam: Normal Inspection - Respiratory Exam Respiratory Exam: Clear to Ausculation Bilateral, NORMAL BREATHING PATTERN. absent: Rales, Rhonchi, Wheezes, Respiratory Distress - Cardiovascular Exam Cardiovascular Exam: REGULAR RHYTHM, +S1, +S2 - GI/Abdominal Exam GI & Abdominal Exam: Soft, Normal Bowel Sounds. absent: Distended, Firm, Guarding, Rigid, Tenderness, Organomegaly, Rebound - Extremities Exam Extremities Exam: absent: Joint Swelling, Pedal Edema - Neurological Exam Neurological Exam: Alert, Awake, Oriented x3 - Psychiatric Exam Psychiatric exam: Normal Affect, Normal Mood - Skin Skin Exam: Dry, Intact, Normal Color, Warm Assessment and Plan - Assessment and Plan (Free Text) Assessment: Kristal Preciado is a 63F w/ no sig hx who presented to the ER with complaints of epigastric pain. CT Abd: CBD 1.2cm, acute pancreatitis Acute pancreatitis, etiology likely gallstone Dilated CBD Elevated LFTs, improved Abd pain, resolved, likely past a stone Plan: -d/c IV fluids -drop in LFTs indicative, likely past stone -advance diet as toelrated to goal of soft low fat diet -surgery on board -no plan for endoscopic eval at this time -will sign off D/W Dr. Fu <Kristopher Fu - Last Filed: 12/15/18 11:50> Objective - Vital Signs/Intake and Output Vital Signs (last 24 hours): Temp Pulse Resp BP Pulse Ox 98 F 82 19 125/74 94 L 12/15/18 08:29 12/15/18 08:29 12/15/18 08:29 12/15/18 08:29 12/15/18 08:29 Intake and Output: 12/15/18 12/15/18 06:59 18:59 Intake Total 2940 Balance 2940 - Medications Medications: Current Medications Lactated Ringer's (Lactated Ringer's) 1,000 mls @ 100 mls/hr IV .Q10H [facility] Last Admin: 12/14/18 20:10 Dose: Not Given Ceftriaxone Sodium (Rocephin 1 Gram Ivpb) 1 gm in 100 mls @ 100 mls/hr IVPB [facility]; Protocol Last Admin: 12/15/18 09:35 Dose: 100 mls/hr Azithromycin 250 mg/ Sodium (Chloride) 250 mls @ 167 mls/hr IVPB DAILY [facility]; Protocol Last Admin: 12/15/18 10:44 Dose: 167 mls/hr Sodium Chloride (Sodium Chloride 0.9%) 1,000 mls @ 125 mls/hr IV .Q8H [facility] Last Admin: 12/14/18 23:00 Dose: 125 mls/hr Ketorolac Tromethamine (Toradol) 15 mg IVP Q6 PRN PRN Reason: Pain, moderate (4-7) Last Admin: 12/14/18 10:52 Dose: 15 mg Ondansetron HCl (Zofran Inj) 4 mg IVP Q4H PRN PRN Reason: Nausea/Vomiting Pantoprazole Sodium (Protonix Inj) 40 mg IVP DAILY [facility] Last Admin: 12/15/18 09:35 Dose: 40 mg - Labs Labs: 12/15/18 06:20 12/15/18 06:20 PT 12.0 SECONDS (9.4-12.5) 12/13/18 18:35 INR 1.08 12/13/18 18:35 APTT 29.9 Seconds (26.9-38.3) 12/13/18 18:35 Attending/Attestation - Attestation I have fully participated in the care of the patient.: Yes I have reviewed all pertinent clinical information, including history, physical exam and plan: Yes Notes (Text): 12/15/18 11:49 Abdominal pain Acute gallstone pancreatitis Transaminitis - Liquid diet, advance to low fat as tolerated - LFTs trending down, continue to monitor - Follow up surgical recommendations regarding timing of potential cholecystectomy - No further planned GI intervention at this time, will sign off case. Please reconsult as necessary, thank you.
--- NOTE | 2018-12-15 11:08 | CP.PCM.PN ---
<Nika Reno - Last Filed: 12/15/18 15:43> Subjective - Date & Time of Evaluation Date of Evaluation: 12/15/18 Time of Evaluation: 11:08 - Subjective Subjective: PGY1 Medicine Progress Note for Dr. Crump Patient was seen and evaluated at bedside this morning. No acute events overnight. No new complaints. Patient endorses that her abdominal pain has significantly improved. Patient denies vomiting since admission. Patient o therwise denies chest pain, shortness of breath, headache, abdominal pain, fever, chills, nausea/vomiting. Objective - Vital Signs/Intake and Output Vital Signs (last 24 hours): Temp Pulse Resp BP Pulse Ox 98 F 82 19 125/74 94 L 12/15/18 08:29 12/15/18 08:29 12/15/18 08:29 12/15/18 08:29 12/15/18 08:29 Intake and Output: 12/15/18 12/15/18 06:59 18:59 Intake Total 2940 Balance 2940 - Medications Medications: Current Medications Lactated Ringer's (Lactated Ringer's) 1,000 mls @ 100 mls/hr IV .Q10H [facility] Last Admin: 12/14/18 20:10 Dose: Not Given Ceftriaxone Sodium (Rocephin 1 Gram Ivpb) 1 gm in 100 mls @ 100 mls/hr IVPB DAILY [facility]; Protocol Last Admin: 12/15/18 09:35 Dose: 100 mls/hr Azithromycin 250 mg/ Sodium (Chloride) 250 mls @ 167 mls/hr IVPB DAILY [facility]; Protocol Last Admin: 12/15/18 10:44 Dose: 167 mls/hr Sodium Chloride (Sodium Chloride 0.9%) 1,000 mls @ 125 mls/hr IV .Q8H [facility] Last Admin: 12/14/18 23:00 Dose: 125 mls/hr Ketorolac Tromethamine (Toradol) 15 mg IVP Q6 PRN PRN Reason: Pain, moderate (4-7) Last Admin: 12/14/18 10:52 Dose: 15 mg Ondansetron HCl (Zofran Inj) 4 mg IVP Q4H PRN PRN Reason: Nausea/Vomiting Pantoprazole Sodium (Protonix Inj) 40 mg IVP DAILY [facility] Last Admin: 12/15/18 09:35 Dose: 40 mg - Labs Labs: 12/15/18 06:20 12/15/18 06:20 PT 12.0 SECONDS (9.4-12.5) 12/13/18 18:35 INR 1.08 12/13/18 18:35 APTT 29.9 Seconds (26.9-38.3) 12/13/18 18:35 - Additional Findings Additional findings: - Constitutional Appears: Non-toxic, No Acute Distress - Head Exam Head Exam: ATRAUMATIC, NORMOCEPHALIC - Eye Exam Eye Exam: EOMI, Normal appearance, PERRL Pupil Exam: NORMAL ACCOMODATION, PERRL - ENT Exam ENT Exam: Mucous Membranes Moist, Normal Exam - Neck Exam Neck Exam: Full ROM, Normal Inspection - Respiratory Exam Respiratory Exam: Clear to Ausculation Bilateral, NORMAL BREATHING PATTERN. absent: Accessory Muscle Use, Chest Wall Tenderness, Decreased Breath Sounds, Prolonged Expiratory Phase, Rales, Rhonchi, Wheezes, Respiratory Distress, Stridor - Cardiovascular Exam Cardiovascular Exam: REGULAR RHYTHM, RRR, +S1, +S2. absent: Bradycardia, Tachycardia, Clicks, Diastolic murmur, Gallop, Irregular Rhythm, JVD, Rubs, +S4, Murmur - GI/Abdominal Exam GI & Abdominal Exam: Soft, Tenderness (Mild epigastric tenderness to deep palpation; interval improvement noted), Normal Bowel Sounds. absent: Distended, Firm, Guarding, Rigid, Mass, Rebound - Extremities Exam Extremities Exam: absent: Calf Tenderness - Neurological Exam Neurological Exam: Alert, Awake, Oriented x3 - Psychiatric Exam Psychiatric exam: Normal Affect, Normal Mood - Skin Skin Exam: Dry, Intact, Normal Color, Warm Assessment and Plan - Assessment and Plan (Free Text) Assessment: 63 year old female with no significant past medical history who presented with abdominal pain and was found to have gallstone pancreatitis. Plan: Pancreatitis - CT Abdomen/Pelvis showed acute/severe pancreatitis and cholelithiasis without evidence of cholecystitis - Abdominal US showed a dilated CBD to 1.2cm and, again, cholelithiasis without evidence of cholecystitis - Discontinued: Normal Saline at 125mls/hr - IVF: LR @100mls/hr - Continue Toradol PRN for pain control - Continue Zofran PRN for N/V - GI consulted, all recommendations appreciated; No MRCP/ERCP or endoscopic interventions indicated at this time and can advance to clear liquid diet - Surgery consulted, all recommendations appreciated; * Recommend Cholecystectomy as an in-patient - PT/PTT/ INR within normal limits - Advance diet to liquid per GI: Patient tolerating well Right Lung Infiltrate - Chest X-Ray showed right sided patchy infiltrate - Procalcitonin and cultures pending - Continue Rocephin and Zithromax for empiric coverage Ppx: GI Prophylaxis: Protonix DVT Prophylaxis: SCD's Diet: Clear liquid Code Status: Full Code Patient seen and case discussed with attending, Dr. Crump. Nika Reno PGY1 <Rafy Crump - Last Filed: 12/15/18 17:49> Objective - Vital Signs/Intake and Output Vital Signs (last 24 hours): Temp Pulse Resp BP Pulse Ox 99.1 F 94 H 19 130/82 95 12/15/18 16:40 12/15/18 16:40 12/15/18 16:40 12/15/18 16:40 12/15/18 16:40 Intake and Output: 12/15/18 12/15/18 06:59 18:59 Intake Total 2940 Balance 2940 - Medications Medications: Current Medications Lactated Ringer's (Lactated Ringer's) 1,000 mls @ 100 mls/hr IV .Q10H [facility] Last Admin: 12/14/18 20:10 Dose: Not Given Ceftriaxone Sodium (Rocephin 1 Gram Ivpb) 1 gm in 100 mls @ 100 mls/hr IVPB DAILY [facility]; Protocol Last Admin: 12/15/18 09:35 Dose: 100 mls/hr Azithromycin 250 mg/ Sodium (Chloride) 250 mls @ 167 mls/hr IVPB DAILY [facility]; Protocol Last Admin: 12/15/18 10:44 Dose: 167 mls/hr Sodium Chloride (Sodium Chloride 0.9%) 1,000 mls @ 125 mls/hr IV .Q8H [facility] Last Admin: 12/14/18 23:00 Dose: 125 mls/hr Ketorolac Tromethamine (Toradol) 15 mg IVP Q6 PRN PRN Reason: Pain, moderate (4-7) Last Admin: 12/14/18 10:52 Dose: 15 mg Ondansetron HCl (Zofran Inj) 4 mg IVP Q4H PRN PRN Reason: Nausea/Vomiting Pantoprazole Sodium (Protonix Inj) 40 mg IVP DAILY [facility] Last Admin: 12/15/18 09:35 Dose: 40 mg - Labs Labs: 12/15/18 06:20 12/15/18 06:20 PT 12.0 SECONDS (9.4-12.5) 12/13/18 18:35 INR 1.08 12/13/18 18:35 APTT 29.9 Seconds (26.9-38.3) 12/13/18 18:35 Attending/Attestation - Attestation I have personally seen and examined this patient.: Yes I have fully participated in the care of the patient.: Yes I have reviewed all pertinent clinical information, including history, physical exam and plan: Yes Notes (Text): 12/15/18 17:41 63 year old female with no significant past medical history who presented with abdominal pain found to have acute gallstone pancreatitis and transaminitis. LFTs continue to come down (?passed stone). GI and surgery are following. Surgery is planning for cholecystectomy. Abdominal pain has improved but still complains of nausea. Continue with iv antibiotics for RLL pneumonia. Rafy Crump MD Hospitalist.
[2018-12-15] MEDS: Sodium Chloride 0.9% 1,000 ML IV SCH (19:58)
[2018-12-15 21:07] LABS: URINE BILIRUBIN NEGATIVE (NEGATIVE); URINE BLOOD NEGATIVE (NEGATIVE); URINE GLUCOSE (UA) NEGATIVE (NEGATIVE); URINE LEUKOCYTE ESTERASE NEGATIVE Leu/uL (NEGATIVE); URINE PROTEIN NEGATIVE mg/dL (<30 mg/dL); URINE UROBILINOGEN 0.2 E.U./dL (<1 E.U./dL)
[2018-12-15 21:09] LABS: URINE APPEARANCE CLEAR (CLEAR); URINE COLOR YELLOW (YELLOW)
[2018-12-16] MEDS: Sodium Chloride 0.9% 1,000 ML IV SCH ×2 (00:16→09:27)
[2018-12-16] MEDS: Lactated Ringer's 1,000 ML IV SCH (02:39)
[2018-12-16 07:10] LABS: BASO # 0.02 K/mm3 (0.0-2.0); BASO % 0.3 % (0.0-3.0); EOS # 0.4 (0.0-0.7); HEMOGLOBIN 11.7 g/dL (12.0-16.0); LYMPH # 2.1 (1.2-3.4); LYMPH % 29.6 % (22.0-35.0); MEAN CELL VOLUME 86.8 fl (80.0-105.0); MEAN CORPUSCULAR HEMOGLOBIN 28.1 pg (25.0-35.0); MEAN CORPUSCULAR HGB CONC 32.3 g/dl (31.0-37.0); MEAN PLATELET VOLUME 9.6 fl (7.0-11.0); MONO # 0.4 (0.1-0.6); MONO % 5.9 % (1.0-6.0); RBC 4.17 10^6/uL (3.5-6.1); RED CELL DISTRIBUTION WIDTH 13.5 % (11.5-14.5); WHITE BLOOD COUNT 7.2 10^3/uL (4.5-11.0)
[2018-12-16 07:39] LABS: ALB/GLOB RATIO 1.1 (1.1-1.8); ALBUMIN 4.1 g/dL (3.0-4.8); ALT/SGPT 173 U/L (7-56); AST/SGOT 73 U/L (14-36); BLOOD UREA NITROGEN 6 mg/dL (7-21); CALCIUM 9.3 mg/dL (8.4-10.5); GFR NON-AFRICAN AMERICAN > 60
[2018-12-16] MEDS: cefTRIAXone 1 gm 1 GM/100 ML BAG IVPB SCH (09:27)
[2018-12-16 09:56] LABS: INR 1.15; PARTIAL THROMBOPLASTIN TIME 32.2 Seconds (26.9-38.3)
[2018-12-16] MEDS: Azithromycin 250 MG in Sodium Chloride 0.9% 250 ML IVPB SCH (10:20)
--- NOTE | 2018-12-16 10:53 | CP.PCM.PN ---
Subjective - Date & Time of Evaluation Date of Evaluation: 12/16/18 Time of Evaluation: 09:45 - Subjective Subjective: Darryn Valdez, PGY-[address] Harrell Patient seen and evaluated at bedside. No acute events reported overnight. Tolerating diet. Reports slight epigastric pain. Denies nausea/vomiting. Urinating and passing flatus without issue. Objective - Vital Signs/Intake and Output Vital Signs (last 24 hours): Temp Pulse Resp BP Pulse Ox 98 F 75 18 128/79 94 L 12/16/18 08:44 12/16/18 08:44 12/16/18 08:44 12/16/18 08:44 12/16/18 08:44 Intake and Output: 12/16/18 12/16/18 06:59 18:59 Intake Total 1500 Balance 1500 - Medications Medications: Current Medications Lactated Ringer's (Lactated Ringer's) 1,000 mls @ 100 mls/hr IV .Q10H [facility] Last Admin: 12/16/18 02:39 Dose: 100 mls/hr Ceftriaxone Sodium (Rocephin 1 Gram Ivpb) 1 gm in 100 mls @ 100 mls/hr IVPB DAILY [facility]; Protocol Last Admin: 12/16/18 09:27 Dose: 100 mls/hr Azithromycin 250 mg/ Sodium (Chloride) 250 mls @ 167 mls/hr IVPB DAILY [facility]; Protocol Last Admin: 12/16/18 10:20 Dose: 167 mls/hr Sodium Chloride (Sodium Chloride 0.9%) 1,000 mls @ 125 mls/hr IV .Q8H [facility] Last Admin: 12/16/18 09:27 Dose: 125 mls/hr Ketorolac Tromethamine (Toradol) 15 mg IVP Q6 PRN PRN Reason: Pain, moderate (4-7) Last Admin: 12/14/18 10:52 Dose: 15 mg Ondansetron HCl (Zofran Inj) 4 mg IVP Q4H PRN PRN Reason: Nausea/Vomiting Pantoprazole Sodium (Protonix Inj) 40 mg IVP DAILY [facility] Last Admin: 12/16/18 09:27 Dose: 40 mg - Labs Labs: 12/16/18 06:45 12/16/18 06:45 PT 13.0 SECONDS (9.4-12.5) H 12/16/18 09:30 INR 1.15 12/16/18 09:30 APTT 32.2 Seconds (26.9-38.3) 12/16/18 09:30 - Additional Findings Additional findings: - Constitutional Appears: Non-toxic, No Acute Distress - Head Exam Head Exam: ATRAUMATIC, NORMOCEPHALIC - Eye Exam Eye Exam: EOMI. absent: Scleral icterus - ENT Exam ENT Exam: Mucous Membranes Dry - Neck Exam Neck exam: Positive for: Full Rom. Negative for: Lymphadenopathy - Respiratory Exam Respiratory Exam: NORMAL BREATHING PATTERN. absent: Accessory Muscle Use, Respiratory Distress - Cardiovascular Exam Cardiovascular Exam: +S1, +S2 - GI/Abdominal Exam GI & Abdominal Exam: Soft, Mild Tenderness (in epigastrum). absent: Distended, Firm, Guarding, Rebound, Rigid - Extremities Exam Extremities exam: Positive for: normal capillary refill, pedal pulses present. Negative for: calf tenderness - Back Exam Back exam: absent: CVA tenderness (L), CVA tenderness (R) - Neurological Exam Neurological exam: Alert, Oriented x3 - Skin Skin Exam: Dry, Warm Assessment and Plan - Assessment and Plan (Free Text) Assessment: 63 year old F with acute pancreatitis, likely due to gallstone. Plan: - Pain/nausea controlled - Transaminitis improving - IVF and supportive care - Analgesia - Tolerating CLD - ADAT - Will plan for cholecystectomy tomorrow, NPO past midnight Further recs per Dr. Julio Cesar Valdez, PGY-1
--- NOTE | 2018-12-16 13:13 | CP.PCM.PN ---
<Nika Reno - Last Filed: 12/16/18 16:44> Subjective - Date & Time of Evaluation Date of Evaluation: 12/16/18 Time of Evaluation: 13:13 - Subjective Subjective: PGY1 Medicine Progress Note for Dr. Crump Patient was seen and evaluated at bedside this morning. No acute events overnight. No new complaints. Patient endorses that her abdominal pain has significantly improved. Patient denies vomiting since admission. Patient o therwise denies chest pain, shortness of breath, headache, abdominal pain, fever, chills, nausea/vomiting. Patient is scheduled for cholecystectomy tomorrow morning. Objective - Vital Signs/Intake and Output Vital Signs (last 24 hours): Temp Pulse Resp BP Pulse Ox 98 F 75 18 128/79 94 L 12/16/18 08:44 12/16/18 08:44 12/16/18 08:44 12/16/18 08:44 12/16/18 08:44 Intake and Output: 12/16/18 12/16/18 06:59 18:59 Intake Total 1500 Balance 1500 - Medications Medications: Current Medications Lactated Ringer's (Lactated Ringer's) 1,000 mls @ 100 mls/hr IV .Q10H [facility] Last Admin: 12/16/18 02:39 Dose: 100 mls/hr Ceftriaxone Sodium (Rocephin 1 Gram Ivpb) 1 gm in 100 mls @ 100 mls/hr IVPB DAILY [facility]; Protocol Last Admin: 12/16/18 09:27 Dose: 100 mls/hr Azithromycin 250 mg/ Sodium (Chloride) 250 mls @ 167 mls/hr IVPB DAILY [facility]; Protocol Last Admin: 12/16/18 10:20 Dose: 167 mls/hr Sodium Chloride (Sodium Chloride 0.9%) 1,000 mls @ 125 mls/hr IV .Q8H [facility] Last Admin: 12/16/18 09:27 Dose: 125 mls/hr Ketorolac Tromethamine (Toradol) 15 mg IVP Q6 PRN PRN Reason: Pain, moderate (4-7) Last Admin: 12/14/18 10:52 Dose: 15 mg Ondansetron HCl (Zofran Inj) 4 mg IVP Q4H PRN PRN Reason: Nausea/Vomiting Pantoprazole Sodium (Protonix Inj) 40 mg IVP DAILY [facility] Last Admin: 12/16/18 09:27 Dose: 40 mg - Labs Labs: 12/16/18 06:45 12/16/18 06:45 PT 13.0 SECONDS (9.4-12.5) H 12/16/18 09:30 INR 1.15 12/16/18 09:30 APTT 32.2 Seconds (26.9-38.3) 12/16/18 09:30 - Additional Findings Additional findings: - Constitutional Appears: Non-toxic, No Acute Distress - Head Exam Head Exam: ATRAUMATIC, NORMOCEPHALIC - Eye Exam Eye Exam: EOMI, Normal appearance, PERRL Pupil Exam: NORMAL ACCOMODATION, PERRL - ENT Exam ENT Exam: Mucous Membranes Moist, Normal Exam - Neck Exam Neck Exam: Full ROM, Normal Inspection - Respiratory Exam Respiratory Exam: Clear to Ausculation Bilateral, NORMAL BREATHING PATTERN. absent: Accessory Muscle Use, Chest Wall Tenderness, Decreased Breath Sounds, Prolonged Expiratory Phase, Rales, Rhonchi, Wheezes, Respiratory Distress, Stridor - Cardiovascular Exam Cardiovascular Exam: REGULAR RHYTHM, RRR, +S1, +S2. absent: Bradycardia, Tachycardia, Clicks, Diastolic murmur, Gallop, Irregular Rhythm, JVD, Rubs, +S4, Murmur - GI/Abdominal Exam GI & Abdominal Exam: Soft, Tenderness (Mild epigastric tenderness to deep palpation; interval improvement noted), Normal Bowel Sounds. absent: Distended, Firm, Guarding, Rigid, Mass, Rebound - Extremities Exam Extremities Exam: absent: Calf Tenderness - Neurological Exam Neurological Exam: Alert, Awake, Oriented x3 - Psychiatric Exam Psychiatric exam: Normal Affect, Normal Mood - Skin Skin Exam: Dry, Intact, Normal Color, Warm Assessment and Plan - Assessment and Plan (Free Text) Assessment: 63 year old female with no significant past medical history who presented with abdominal pain and was found to have gallstone pancreatitis. Patient is NPO over midnight for cholecystectomy tomorrow morning. Plan: Pancreatitis - CT Abdomen/Pelvis showed acute/severe pancreatitis and cholelithiasis without evidence of cholecystitis - Abdominal US showed a dilated CBD to 1.2cm and, again, cholelithiasis without evidence of cholecystitis - IVF: LR @100mls/hr - Continue Toradol PRN for pain control - Continue Zofran PRN for N/V - GI consulted, all recommendations appreciated; No MRCP/ERCP or endoscopic interventions indicated at this time and can advance to clear liquid diet - Surgery consulted, all recommendations appreciated; * Recommend Cholecystectomy as an in-patient - PT/PTT/ INR within normal limits - Patient is NPO over midnight for cholecystectomy tomorrow morning. Right Lung Infiltrate - Chest X-Ray showed right sided patchy infiltrate - Procalcitonin and cultures pending - Continue Rocephin and Zithromax for empiric coverage Ppx: - GI Prophylaxis: Protonix - DVT Prophylaxis: SCD's - Diet: Clear liquid - Code Status: Full Code Patient seen and case discussed with attending, Dr. Crump. Nika Reno PGY1 <Rafy Crump - Last Filed: 12/16/18 16:54> Objective - Vital Signs/Intake and Output Vital Signs (last 24 hours): Temp Pulse Resp BP Pulse Ox 98 F 75 18 128/79 94 L 12/16/18 08:44 12/16/18 08:44 12/16/18 08:44 12/16/18 08:44 12/16/18 08:44 Intake and Output: 12/16/18 12/16/18 06:59 18:59 Intake Total 1500 Balance 1500 - Medications Medications: Current Medications Lactated Ringer's (Lactated Ringer's) 1,000 mls @ 100 mls/hr IV .Q10H [facility] Last Admin: 12/16/18 02:39 Dose: 100 mls/hr Ceftriaxone Sodium (Rocephin 1 Gram Ivpb) 1 gm in 100 mls @ 100 mls/hr IVPB DAILY [facility]; Protocol Last Admin: 12/16/18 09:27 Dose: 100 mls/hr Azithromycin 250 mg/ Sodium (Chloride) 250 mls @ 167 mls/hr IVPB DAILY [facility]; Protocol Last Admin: 12/16/18 10:20 Dose: 167 mls/hr Sodium Chloride (Sodium Chloride 0.9%) 1,000 mls @ 125 mls/hr IV .Q8H [facility] Last Admin: 12/16/18 09:27 Dose: 125 mls/hr Ketorolac Tromethamine (Toradol) 15 mg IVP Q6 PRN PRN Reason: Pain, moderate (4-7) Last Admin: 12/14/18 10:52 Dose: 15 mg Ondansetron HCl (Zofran Inj) 4 mg IVP Q4H PRN PRN Reason: Nausea/Vomiting Pantoprazole Sodium (Protonix Inj) 40 mg IVP DAILY [facility] Last Admin: 12/16/18 09:27 Dose: 40 mg - Labs Labs: 12/16/18 06:45 12/16/18 06:45 PT 13.0 SECONDS (9.4-12.5) H 12/16/18 09:30 INR 1.15 12/16/18 09:30 APTT 32.2 Seconds (26.9-38.3) 12/16/18 09:30 Attending/Attestation - Attestation I have personally seen and examined this patient.: Yes I have fully participated in the care of the patient.: Yes I have reviewed all pertinent clinical information, including history, physical exam and plan: Yes Notes (Text): 12/16/18 16:53 63 year old female with no significant past medical history who presented with abdominal pain found to have acute gallstone pancreatitis and transaminitis. LFTs continue to improved. GI evaluation was appreciated. Surgery is also following and planning for cholecystectomy tomorrow. Continue with iv antibiotics for RLL pneumonia. Rafy Crump MD Hospitalist.
[2018-12-17 07:11] LABS: BASO # 0.03 K/mm3 (0.0-2.0); BASO % 0.5 % (0.0-3.0); EOS # 0.3 (0.0-0.7); EOS % 5.7 % (1.5-5.0); HEMOGLOBIN 11.3 g/dL (12.0-16.0); LYMPH # 1.8 (1.2-3.4); LYMPH % 31.7 % (22.0-35.0); MEAN CELL VOLUME 85.6 fl (80.0-105.0); MEAN CORPUSCULAR HGB CONC 33.9 g/dl (31.0-37.0); MEAN PLATELET VOLUME 9.4 fl (7.0-11.0); MONO # 0.4 (0.1-0.6); MONO % 6.7 % (1.0-6.0); RBC 3.89 10^6/uL (3.5-6.1); RED CELL DISTRIBUTION WIDTH 13.4 % (11.5-14.5); WHITE BLOOD COUNT 5.8 10^3/uL (4.5-11.0)
[2018-12-17 07:20] LABS: INR 1.15; PARTIAL THROMBOPLASTIN TIME 32.4 Seconds (26.9-38.3)
[2018-12-17] MEDS ORDERED: Iohexol 240 (50 ml) ONE (07:27)
[2018-12-17] MEDS ORDERED: Bupivacaine 0.5% 50 ML IJ ONE (07:27)
[2018-12-17 07:31] LABS: ALB/GLOB RATIO 1.2 (1.1-1.8); ALBUMIN 3.9 g/dL (3.0-4.8); ALT/SGPT 126 U/L (7-56); AST/SGOT 47 U/L (14-36); BLOOD UREA NITROGEN 6 mg/dL (7-21); CALCIUM 9.2 mg/dL (8.4-10.5); GFR NON-AFRICAN AMERICAN > 60
[2018-12-17] MEDS ORDERED: Propofol 10 mg/ml Inj (20 ML) ONE (07:44)
[2018-12-17] MEDS ORDERED: Succinylcholine 200 mg/10 ml Inj IV ONE (07:45)
[2018-12-17] MEDS ORDERED: Rocuronium 10 mg/ml (5 ml) ONE (07:45)
[2018-12-17] MEDS ORDERED: Midazolam 2 MG/2 ML VIAL ONE (07:46)
[2018-12-17] MEDS ORDERED: Esmolol 100 mg/10ml Inj IV ONE (08:13)
[2018-12-17] MEDS ORDERED: Neostigmine Methylsulfate 3mg/3ml Syringe IV ONE (09:06)
[2018-12-17] MEDS ORDERED: Lactated Ringer's 1,000 ML IV SCH (09:30)
[2018-12-17] MEDS: HYDROmorphone 0.5 mg/0.5 ml ISec IVP PRN ×3 (09:37→10:11)
--- NOTE | 2018-12-17 09:37 | PCM.SURG1 ---
Surgeon's Initial Post Op Note - Surgeon's Notes Surgeon: Dr. Harrell Field Training Agent: Imani PGY2; Babak MS3 Type of Anesthesia: General Endo, Local Anesthesia Administered By: Dr. Jordan Pre-Operative Diagnosis: Gallstone Pancreatitis Operative Findings: See operative report Post-Operative Diagnosis: Same Operation Performed: Laparascopic Cholecystectomy Specimen/Specimens Removed: Gallbladder Estimated Blood Loss: EBL {In ML}: 15 Blood Products Given: N/A Drains Used: No Drains Post-Op Condition: Good Date of Surgery/Procedure: 12/17/18 Time of Surgery/Procedure: 09:36
[2018-12-17] MEDS ORDERED: HYDROmorphone 0.5 mg/0.5 ml ISec ONE ×3 (09:41→10:14)
[2018-12-17] MEDS ORDERED: HYDROmorphone 0.5 mg/0.5 ml ISec IVP PRN (09:44)
[2018-12-17] MEDS: Azithromycin 250 MG in Sodium Chloride 0.9% 250 ML IVPB SCH (11:00)
[2018-12-17] MEDS: cefTRIAXone 1 gm 1 GM/100 ML BAG IVPB SCH (11:00)
--- NOTE | 2018-12-17 12:44 | CP.PCM.PN ---
<Nika Reno - Last Filed: 12/17/18 12:54> Subjective - Date & Time of Evaluation Date of Evaluation: 12/17/18 Time of Evaluation: 12:44 - Subjective Subjective: PGY1 Medicine Progress Note for Dr. Villafana Patient was seen and evaluated at bedside this morning. Patient is s/p Laparascopic Cholecystectomy (POD-0). No drains placed. Patient tolerated procedure well. Patient denies pain. Otherwise no acute events overnight. No new complaints. Patient endorses that her abdominal pain has significantly improved. Patient otherwise denies chest pain, shortness of breath, headache, abdominal pain, fever, chills, nausea/vomiting. Objective - Vital Signs/Intake and Output Vital Signs (last 24 hours): Temp Pulse Resp BP Pulse Ox 97.8 F 61 12 136/77 95 12/17/18 10:23 12/17/18 10:38 12/17/18 10:38 12/17/18 10:38 12/17/18 10:38 - Medications Medications: Current Medications Hydromorphone HCl (Dilaudid) 0.5 mg IVP Q4H PRN PRN Reason: Pain, severe (8-10) Lactated Ringer's (Lactated Ringer's) 1,000 mls @ 100 mls/hr IV .Q10H [facility] Last Admin: 12/16/18 02:39 Dose: 100 mls/hr Ceftriaxone Sodium (Rocephin 1 Gram Ivpb) 1 gm in 100 mls @ 100 mls/hr IVPB DAILY [facility]; Protocol Last Admin: 12/17/18 11:00 Dose: 100 mls/hr Azithromycin 250 mg/ Sodium (Chloride) 250 mls @ 167 mls/hr IVPB DAILY [facility]; Protocol Last Admin: 12/17/18 11:00 Dose: 167 mls/hr Ondansetron HCl (Zofran Inj) 4 mg IVP Q4H PRN PRN Reason: Nausea/Vomiting Ondansetron HCl (Zofran Inj) 4 mg IVP ONCE PRN PRN Reason: Nausea/Vomiting Oxycodone/Acetaminophen (Percocet 5/325 Mg Tab) 1 tab PO Q4H PRN PRN Reason: Pain, moderate (4-7) Stop: 12/20/18 09:45 Pantoprazole Sodium (Protonix Inj) 40 mg IVP DAILY [facility] Last Admin: 12/17/18 11:00 Dose: 40 mg - Labs Labs: 12/17/18 06:45 12/17/18 06:45 PT 13.0 SECONDS (9.4-12.5) H 12/17/18 06:45 INR 1.15 12/17/18 06:45 APTT 32.4 Seconds (26.9-38.3) 12/17/18 06:45 - Additional Findings Additional findings: - Constitutional Appears: Non-toxic, No Acute Distress - Head Exam Head Exam: ATRAUMATIC, NORMOCEPHALIC - Eye Exam Eye Exam: EOMI, Normal appearance, PERRL Pupil Exam: NORMAL ACCOMODATION, PERRL - ENT Exam ENT Exam: Mucous Membranes Moist, Normal Exam - Neck Exam Neck Exam: Full ROM, Normal Inspection - Respiratory Exam Respiratory Exam: Clear to Ausculation Bilateral, NORMAL BREATHING PATTERN. absent: Accessory Muscle Use, Chest Wall Tenderness, Decreased Breath Sounds, Prolonged Expiratory Phase, Rales, Rhonchi, Wheezes, Respiratory Distress, Stridor - Cardiovascular Exam Cardiovascular Exam: REGULAR RHYTHM, RRR, +S1, +S2. absent: Bradycardia, Tachycardia, Clicks, Diastolic murmur, Gallop, Irregular Rhythm, JVD, Rubs, +S4, Murmur - GI/Abdominal Exam GI & Abdominal Exam: Soft. surgical site clean in tact and without any bloody discharge. No drains. Normal Bowel Sounds. absent: Distended, Firm, Guarding, Rigid, Mass, Rebound - Extremities Exam Extremities Exam: absent: Calf Tenderness - Neurological Exam Neurological Exam: Alert, Awake, Oriented x3 - Psychiatric Exam Psychiatric exam: Normal Affect, Normal Mood - Skin Skin Exam: Dry, Intact, Normal Color, Warm Assessment and Plan - Assessment and Plan (Free Text) Assessment: 63 year old female with no significant past medical history who presented with abdominal pain and was found to have gallstone pancreatitis. Patient is s/p laparoscopic cholecystectomy; POD-[address] Harrell. Plan: Gallstone Pancreatitis S/P Laparoscopic Cholecystectomy - POD-0 - Incentive Spirometry - Liquid diet advanced to regular today, per Surgical team - Pain management: Percocet 1 tab PO Q4H PRN; dilaudid 0.5mg IVP Q4H PRN - CT Abdomen/Pelvis showed acute/severe pancreatitis and cholelithiasis without evidence of cholecystitis - Abdominal US showed a dilated CBD to 1.2cm and, again, cholelithiasis without evidence of cholecystitis - IVF: LR @100mls/hr - Continue Toradol PRN for pain control - Zofran PRN for N/V - GI consulted, all recommendations appreciated; No MRCP/ERCP or endoscopic interventions indicated at this time - Surgery (Dr. Harrell) consulted, all recommendations appreciated; - PT/PTT/ INR within normal limits Right Lung Infiltrate - Chest X-Ray showed right sided patchy infiltrate - Procalcitonin and cultures pending - Continue Rocephin and Zithromax for empiric coverage Ppx: - GI Prophylaxis: Protonix - DVT Prophylaxis: SCD's - Diet: Clear liquid - Code Status: Full Code Patient seen and case discussed with attending, Dr. Crump. Nika Reno PGY1 <Geetha Villafana - Last Filed: 12/20/18 15:10> Objective - Vital Signs/Intake and Output Vital Signs (last 24 hours): Temp Pulse Resp BP Pulse Ox 98.4 F 83 20 124/72 93 L 12/19/18 08:23 12/19/18 08:23 12/19/18 08:23 12/19/18 08:23 12/19/18 08:23 - Labs Labs: 12/18/18 06:10 12/18/18 06:10 PT 13.0 SECONDS (9.4-12.5) H 12/17/18 06:45 INR 1.15 12/17/18 06:45 APTT 32.4 Seconds (26.9-38.3) 12/17/18 06:45 Attending/Attestation - Attestation I have personally seen and examined this patient.: Yes I have fully participated in the care of the patient.: Yes I have reviewed all pertinent clinical information, including history, physical exam and plan: Yes Notes (Text): 12/20/18 15:09 Medical record note made by the resident after discussion with my direction and input after the patient was personally seen and examined by me. I have reviewed the chart and agree that the record accurately reflects by personal performance of the history, physical exam, data review, and medical decision-making, in the course for the patient. I have also personally directed the plan of care.
[2018-12-18] MEDS: Oxycodone/Acetaminophen 5/325 mg Tab PO PRN ×2 (03:25→14:35)
[2018-12-18 06:33] LABS: BASO # 0.03 K/mm3 (0.0-2.0); BASO % 0.5 % (0.0-3.0); EOS # 0.3 (0.0-0.7); EOS % 5.1 % (1.5-5.0); HEMOGLOBIN 11.2 g/dL (12.0-16.0); LYMPH # 1.6 (1.2-3.4); LYMPH % 25.1 % (22.0-35.0); MEAN CELL VOLUME 86.3 fl (80.0-105.0); MEAN CORPUSCULAR HEMOGLOBIN 28.4 pg (25.0-35.0); MEAN CORPUSCULAR HGB CONC 32.8 g/dl (31.0-37.0); MEAN PLATELET VOLUME 8.8 fl (7.0-11.0); MONO # 0.4 (0.1-0.6); MONO % 5.9 % (1.0-6.0); RBC 3.95 10^6/uL (3.5-6.1); RED CELL DISTRIBUTION WIDTH 13.4 % (11.5-14.5); WHITE BLOOD COUNT 6.3 10^3/uL (4.5-11.0)
[2018-12-18 07:18] LABS: BLOOD UREA NITROGEN 7 mg/dL (7-21)
[2018-12-18 07:19] LABS: ALB/GLOB RATIO 1.2 (1.1-1.8); ALBUMIN 3.7 g/dL (3.0-4.8); ALT/SGPT 89 U/L (7-56); AST/SGOT 40 U/L (14-36); CALCIUM 9.1 mg/dL (8.4-10.5); GFR NON-AFRICAN AMERICAN > 60
--- NOTE | 2018-12-18 08:41 | CP.PCM.PN ---
Subjective - Date & Time of Evaluation Date of Evaluation: 12/18/18 Time of Evaluation: 07:30 - Subjective Subjective: Darryn Valdez, PGY-[address] Harrell Patient seen and evaluated at bedside. No acute events reported overnight. POD#1 s/p lap deena without complication 2/2 gallstone pancreatitis. Reports mild pulling pains in the abdomen near her incision sites. Otherwise, denies chest pain, shortness of breath, palpitations, leg swelling, headaches. Objective - Vital Signs/Intake and Output Vital Signs (last 24 hours): Temp Pulse Resp BP Pulse Ox 98.0 F 73 19 119/72 93 L 12/17/18 16:57 12/17/18 16:57 12/17/18 16:57 12/17/18 16:57 12/17/18 16:57 - Medications Medications: Current Medications Hydromorphone HCl (Dilaudid) 0.5 mg IVP Q4H PRN PRN Reason: Pain, severe (8-10) Ceftriaxone Sodium (Rocephin 1 Gram Ivpb) 1 gm in 100 mls @ 100 mls/hr IVPB DAILY [facility]; Protocol Stop: 12/18/18 10:59 Last Admin: 12/17/18 11:00 Dose: 100 mls/hr Azithromycin 250 mg/ Sodium (Chloride) 250 mls @ 167 mls/hr IVPB DAILY [facility]; Protocol Last Admin: 12/17/18 11:00 Dose: 167 mls/hr Ondansetron HCl (Zofran Inj) 4 mg IVP Q4H PRN PRN Reason: Nausea/Vomiting Ondansetron HCl (Zofran Inj) 4 mg IVP ONCE PRN PRN Reason: Nausea/Vomiting Oxycodone/Acetaminophen (Percocet 5/325 Mg Tab) 1 tab PO Q4H PRN PRN Reason: Pain, moderate (4-7) Stop: 12/20/18 09:45 Last Admin: 12/18/18 03:25 Dose: 1 tab Pantoprazole Sodium (Protonix Inj) 40 mg IVP DAILY [facility] Last Admin: 12/17/18 11:00 Dose: 40 mg - Labs Labs: 12/18/18 06:10 12/18/18 06:10 PT 13.0 SECONDS (9.4-12.5) H 12/17/18 06:45 INR 1.15 12/17/18 06:45 APTT 32.4 Seconds (26.9-38.3) 12/17/18 06:45 - Additional Findings Additional findings: - Constitutional Appears: Non-toxic, No Acute Distress - Head Exam Head Exam: ATRAUMATIC, NORMOCEPHALIC - Eye Exam Eye Exam: EOMI. absent: Scleral icterus - ENT Exam ENT Exam: Mucous Membranes Dry - Neck Exam Neck exam: Positive for: Full Rom. Negative for: Lymphadenopathy - Respiratory Exam Respiratory Exam: NORMAL BREATHING PATTERN. absent: Accessory Muscle Use, Respiratory Distress - Cardiovascular Exam Cardiovascular Exam: +S1, +S2 - GI/Abdominal Exam GI & Abdominal Exam: Soft, Mild Tenderness (in epigastrum). 4 incision sites, healing without erythema or discharge. - Extremities Exam Extremities exam: Positive for: normal capillary refill, pedal pulses present. Negative for: calf tenderness - Back Exam Back exam: absent: CVA tenderness (L), CVA tenderness (R) - Neurological Exam Neurological exam: Alert, Oriented x3 - Skin Skin Exam: Dry, Warm Assessment and Plan - Assessment and Plan (Free Text) Assessment: 63 year old F with acute gallstone pancreatitis POD#1 s/p lap deena. Plan: - Pain control - Anti-emetics - Tolerating diet - Cleared for discharge from surgical perspective Further recs per Dr. Julio Cesar Valdez, PGY-1
--- NOTE | 2018-12-18 08:55 | OP ---
PROCEDURE DATE: 12/17/2018 TIME OF SURGERY: 9:36 a.m. PRIMARY SURGEON: Harmeet Harrell MD HOUSEHOLD APPLIANCE ASSEMBLER: Barrington Diallo DO, PGY-2. MEDICAL STUDENT: Myke Hilliard, Third Year. TYPE OF ANESTHESIA: General endotracheal intubation and local anesthesia with 0.5% Marcaine. ANESTHESIA ADMINISTERED BY: Dr. Jordan PREOPERATIVE DIAGNOSIS: Gallstone pancreatitis. POSTOPERATIVE DIAGNOSIS: Gallstone pancreatitis. OPERATION PERFORMED: Laparoscopic cholecystectomy. SPECIMEN REMOVED: Gallbladder. ESTIMATED BLOOD LOSS: 15 mL. BLOOD PRODUCTS: No blood products were given intraoperatively. DRAINS: No drains were used. POSTOPERATIVE CONDITION: Good and stable. CLINICAL NOTE: Mrs. Kristal Preciado is a 63-year-old female who came in with epigastric and right upper quadrant abdominal pain. On laboratory analysis, lipase was elevated and evidence for acute pancreatitis was found. Right upper quadrant ultrasound with evidence of gallstones. Once the abdominal pain has subsided, the patient was consented for laparoscopic cholecystectomy. After the risks, benefits, and alternatives and rationale for surgery was explained, informed consent was obtained and witnessed by the clinical staff for a possible open cholecystectomy, likely laparoscopic cholecystectomy which we performed today. OPERATIVE NOTE: The patient was brought to the operating room where a surgical safety check was performed. Preoperatively, 2 g of IV Ancef was administered, and general anesthesia was induced by the anesthesiology team. Timeout was performed with a surgical safety checklist. The patient was identified correctly with the patient's ID band and the entire staff was briefed on the procedure planned, length of time, and the surgical approach. A Lyn catheter was not inserted as the patient was able to void immediately prior to the operation. Arms were not tucked. In the supine position, the abdomen was prepped and draped in a sterile fashion. A supraumbilical midline incision was made and carried down to the fascia. A Veress needle was inserted to the umbilicus and the pneumoperitoneum was obtained without any complications. A 12 mm port was inserted using a Visiport at the incision that was made supraumbilically under direct vision. The laparoscope was then inserted into the abdomen under direct vision. The entire abdominal cavity was visualized and no immediate complications or injuries were noted. Subsequently, the following ports were inserted under direct visualization along with local anesthetic in a typical fashion, a 5 mm epigastric port and two 5 mm ports along the right costal margin. The peritoneal cavity was inspected again and no abnormalities were found. The patient was placed in reverse Trendelenburg position with the right side up. Omental attachments to the gallbladder were gently swept away using an atraumatic grasper. The atraumatic grasper was used to retract the fundus of the gallbladder superiorly over the dome of the liver. Adhesions between the gallbladder and the omentum were swept away. The infundibulum was identified, and subsequently retracted laterally towards the right lower quadrant using another atraumatic grasper. This maneuver exposed Calot's triangle. The peritoneum overlying the gallbladder infundibulum was incised with a [place] grasper and blunt dissection was carried out. The posterior peritoneum was also dissected until thick fiber spans were noted. A Harmonic instrument was used to take down the peritoneal attachments and the triangle was then dissected to expose the cystic duct, the cystic plate and the cystic artery. Once these structures were carefully identified, the cystic duct was clipped and divided. Further dissection of the triangle was completed and the cystic artery was then clipped and then divided. The remainder of the gallbladder was dissected away using the Harmonic instrument and the entire gallbladder was removed from the bed of the liver. The gallbladder fossa and the cystic artery were inspected to ensure that there was no bleeding and hemostasis was achieved. There was no leakage of bile. The dissection of the entire gallbladder was continued superiorly with the Harmonic instrument and the gallbladder was removed from the liver fossa. There was no leakage noted from the cystic stump. Hemostasis was achieved and no bleeding or leakage of bile was noted throughout. The gallbladder once freed was placed in an endoscopic retrieval bag and easily removed from the abdomen through the umbilical port. The specimen was then sent to Pathology. The sponge and needle counts were declared correct. The fascia at the supraumbilical port was reapproximated using 0 Vicryl in a [id number] fashion. All incisions were then closed using 4-0 Monocryl sutures in an interrupted subcuticular fashion. The supraumbilical incision was closed in a continuous subcuticular fashion using 4-0 Monocryl. The operative field was cleansed and dried with saline. Dermabond skin adhesive was applied. There were no intraoperative complications and the estimated blood loss was 15 mL. Again, all instrument and sponge counts were correct as reported by the staff. A surgical debriefing was performed with the staff. The patient was extubated and transferred to the [facility] in stable condition. Barrington Diallo DO Harmeet Harrell MD
[2018-12-18 09:17] VITALS: RESP 20
[2018-12-18] MEDS: cefTRIAXone 1 gm 1 GM/100 ML BAG IVPB SCH (10:18)
[2018-12-18] MEDS: Azithromycin 250 MG in Sodium Chloride 0.9% 250 ML IVPB SCH (13:33)
[2018-12-18] MEDS: levoFLOXacin 500 MG TAB PO SCH (13:34)
--- NOTE | 2018-12-18 16:05 | CP.PCM.PN ---
<Nika Reno - Last Filed: 12/18/18 16:03> Subjective - Date & Time of Evaluation Date of Evaluation: 12/18/18 Time of Evaluation: 16:03 - Subjective Subjective: PGY1 Medicine Progress Note for Dr. Villafana Patient was seen and evaluated at bedside this morning. Patient is s/p Laparascopic Cholecystectomy (POD-1). No drains placed. Patient tolerated procedure well. Patient denies pain. Otherwise no acute events overnight. No new complaints. Patient endorses that her abdominal pain has significantly improved. Patient otherwise denies chest pain, shortness of breath, headache, abdominal pain, fever, chills, nausea/vomiting. Patient states it is painful for her to get out of bed, and she states she has not been able to ambulate. Objective - Vital Signs/Intake and Output Vital Signs (last 24 hours): Temp Pulse Resp BP Pulse Ox 98.0 F 86 20 102/55 L 94 L 12/18/18 07:00 12/18/18 07:00 12/18/18 07:00 12/18/18 07:00 12/18/18 07:00 - Medications Medications: Current Medications Hydromorphone HCl (Dilaudid) 0.5 mg IVP Q4H PRN PRN Reason: Pain, severe (8-10) Levofloxacin (Levaquin) 500 mg PO DAILY [facility]; Protocol Last Admin: 12/18/18 13:34 Dose: 500 mg Ondansetron HCl (Zofran Inj) 4 mg IVP Q4H PRN PRN Reason: Nausea/Vomiting Ondansetron HCl (Zofran Inj) 4 mg IVP ONCE PRN PRN Reason: Nausea/Vomiting Oxycodone/Acetaminophen (Percocet 5/325 Mg Tab) 1 tab PO Q4H PRN PRN Reason: Pain, moderate (4-7) Stop: 12/20/18 09:45 Last Admin: 12/18/18 14:35 Dose: 1 tab Pantoprazole Sodium (Protonix Inj) 40 mg IVP DAILY [facility] Last Admin: 12/18/18 10:17 Dose: 40 mg - Labs Labs: 12/18/18 06:10 12/18/18 06:10 PT 13.0 SECONDS (9.4-12.5) H 12/17/18 06:45 INR 1.15 12/17/18 06:45 APTT 32.4 Seconds (26.9-38.3) 12/17/18 06:45 - Additional Findings Additional findings: - Constitutional Appears: Non-toxic, No Acute Distress - Head Exam Head Exam: ATRAUMATIC, NORMOCEPHALIC - Eye Exam Eye Exam: EOMI, Normal appearance, PERRL Pupil Exam: NORMAL ACCOMODATION, PERRL - ENT Exam ENT Exam: Mucous Membranes Moist, Normal Exam - Neck Exam Neck Exam: Full ROM, Normal Inspection - Respiratory Exam Respiratory Exam: Clear to Ausculation Bilateral, NORMAL BREATHING PATTERN. absent: Accessory Muscle Use, Chest Wall Tenderness, Decreased Breath Sounds, Prolonged Expiratory Phase, Rales, Rhonchi, Wheezes, Respiratory Distress, Stridor - Cardiovascular Exam Cardiovascular Exam: REGULAR RHYTHM, RRR, +S1, +S2. absent: Bradycardia, Tachycardia, Clicks, Diastolic murmur, Gallop, Irregular Rhythm, JVD, Rubs, +S4, Murmur - GI/Abdominal Exam GI & Abdominal Exam: Soft. surgical site clean in tact and without any bloody discharge. No drains. Normal Bowel Sounds. absent: Distended, Firm, Guarding, Rigid, Mass, Rebound - Extremities Exam Extremities Exam: absent: Calf Tenderness - Neurological Exam Neurological Exam: Alert, Awake, Oriented x3 - Psychiatric Exam Psychiatric exam: Normal Affect, Normal Mood - Skin Skin Exam: Dry, Intact, Normal Color, Warm Assessment and Plan - Assessment and Plan (Free Text) Assessment: 63 year old female with no significant past medical history who presented with abdominal pain and was found to have gallstone pancreatitis. Patient is s/p laparoscopic cholecystectomy; POD-[address] Harrell. Plan: Gallstone Pancreatitis S/P Laparoscopic Cholecystectomy - POD-1 - Incentive Spirometry - HHD - Pain management: Percocet 1 tab PO Q4H PRN; dilaudid 0.5mg IVP Q4H PRN - CT Abdomen/Pelvis showed acute/severe pancreatitis and cholelithiasis without evidence of cholecystitis - Abdominal US showed a dilated CBD to 1.2cm and, again, cholelithiasis without evidence of cholecystitis - Discontinued: IVF: LR @100mls/hr - Continue Toradol PRN for pain control - Zofran PRN for N/V - GI consulted, all recommendations appreciated; No MRCP/ERCP or endoscopic int erventions indicated at this time - Surgery (Dr. Harrell) consulted, all recommendations appreciated; - PT/PTT/ INR within normal limits - Physical Therapy Eval and Treat; Recommendations appreciated Right Lung Infiltrate - Chest X-Ray showed right sided patchy infiltrate - Procalcitonin and cultures pending - Continue Rocephin and Zithromax for empiric coverage Ppx: - GI Prophylaxis: Protonix - DVT Prophylaxis: SCD's - Diet: Clear liquid - Code Status: Full Code Patient seen and case discussed with attending, Dr. Ledy Reno PGY1 <Geetha Villafana - Last Filed: 12/20/18 15:09> Objective - Vital Signs/Intake and Output Vital Signs (last 24 hours): Temp Pulse Resp BP Pulse Ox 98.4 F 83 20 124/72 93 L 12/19/18 08:23 12/19/18 08:23 12/19/18 08:23 12/19/18 08:23 12/19/18 08:23 - Labs Labs: 12/18/18 06:10 12/18/18 06:10 PT 13.0 SECONDS (9.4-12.5) H 12/17/18 06:45 INR 1.15 12/17/18 06:45 APTT 32.4 Seconds (26.9-38.3) 12/17/18 06:45 Attending/Attestation - Attestation I have personally seen and examined this patient.: Yes I have fully participated in the care of the patient.: Yes I have reviewed all pertinent clinical information, including history, physical exam and plan: Yes Notes (Text): 12/20/18 15:08 Medical record note made by the resident after discussion with my direction and input after the patient was personally seen and examined by me. I have reviewed the chart and agree that the record accurately reflects by personal performance of the history, physical exam, data review, and medical decision-making, in the course for the patient. I have also personally directed the plan of care 63 year old female with no significant past medical history who presented with abdominal pain found to have acute gallstone pancreatitis and transaminitis. Patient underwent laproscopic cholecystectomy 12/17/18. She is tolerating liquid diet.LFT are improving Patient is c/o difficulty in ambulation.We will get physical therapy evaluation. Continue antibiotics for Pneumonia. Management plan was discussed in detail with patient. Education was provided.
[2018-12-18 17:49] VITALS: O2SAT 93
[2018-12-19] MEDS ORDERED: Pantoprazole 40 mg EC Tab PO SCH (06:00)
[2018-12-19 08:23] VITALS: BP 124/72; PULSE 83; TEMP 98.4
[2018-12-19] MEDS: levoFLOXacin 500 MG TAB PO SCH (09:59)
--- NOTE | 2018-12-19 11:43 | CP.PCM.DIS ---
<Nika Reno - Last Filed: 12/19/18 11:35> Provider - Provider Date of Admission: 12/15/18 13:01 Attending physician: Geetha Villafana MD Primary care physician: Patient denies Consults: 12/13/18 22:36 General Surgery Consult Routine Comment: Consulting Provider: Harmeet Harrell Consulting Physician: Harmeet Harrell Reason for Consult: poss cholecystitis in the setting of acute pancreatitis Time Spent in preparation of Discharge (in minutes): 45 Diagnosis - Discharge Diagnosis (1) Cholelithiasis Status: Acute Priority: Medium (2) Common bile duct dilatation Status: Acute Priority: Medium (3) Pancreatitis Status: Acute Priority: Medium (4) Pneumonia Status: Acute Priority: Medium Hospital Course - Lab Results Lab Results: Micro Results 12/13/18 22:30 Blood-Venous Blood Culture - Final NO GROWTH AFTER 5 DAYS 12/13/18 22:30 Blood-Venous Gram Stain - Final TEST NOT PERFORMED 12/13/18 22:30 Blood-Venous Blood Culture - Final NO GROWTH AFTER 5 DAYS 12/13/18 22:30 Blood-Venous Gram Stain - Final TEST NOT PERFORMED Most Recent Lab Values WBC 6.3 10^3/uL (4.5-11.0) 12/18/18 06:10 RBC 3.95 10^6/uL (3.5-6.1) 12/18/18 06:10 Hgb 11.2 g/dL (12.0-16.0) L 12/18/18 06:10 Hct 34.1 % (36.0-48.0) L 12/18/18 06:10 MCV 86.3 fl (80.0-105.0) 12/18/18 06:10 MCH 28.4 pg (25.0-35.0) 12/18/18 06:10 MCHC 32.8 g/dl (31.0-37.0) 12/18/18 06:10 RDW 13.4 % (11.5-14.5) 12/18/18 06:10 Plt Count 221 10^3/uL (120.0-450.0) 12/18/18 06:10 MPV 8.8 fl (7.0-11.0) 12/18/18 06:10 Neut % (Auto) 63.4 % (50.0-68.0) 12/18/18 06:10 Lymph % (Auto) 25.1 % (22.0-35.0) 12/18/18 06:10 [place] % (Auto) 5.9 % (1.0-6.0) 12/18/18 06:10 Eos % (Auto) 5.1 % (1.5-5.0) H 12/18/18 06:10 Baso % (Auto) 0.5 % (0.0-3.0) 12/18/18 06:10 Lymph # (Auto) 1.6 (1.2-3.4) 12/18/18 06:10 [place] # (Auto) 0.4 (0.1-0.6) 12/18/18 06:10 Eos # (Auto) 0.3 (0.0-0.7) 12/18/18 06:10 Baso # (Auto) 0.03 K/mm3 (0.0-2.0) 12/18/18 06:10 Absolute Neuts (auto) 4.00 (1.4-6.5) 12/18/18 06:10 PT 13.0 SECONDS (9.4-12.5) H 12/17/18 06:45 INR 1.15 12/17/18 06:45 APTT 32.4 Seconds (26.9-38.3) 12/17/18 06:45 Sodium 139 mmol/L (132-148) 12/18/18 06:10 Potassium 4.1 mmol/L (3.6-5.0) 12/18/18 06:10 Chloride 104 mmol/L (98-107) 12/18/18 06:10 Carbon Dioxide 31 mmol/L (21-33) 12/18/18 06:10 Anion Gap 9 (10-20) L 12/18/18 06:10 BUN 7 mg/dL (7-21) 12/18/18 06:10 Creatinine 0.8 mg/dl (0.7-1.2) 12/18/18 06:10 Est GFR ( Amer) > 60 12/18/18 06:10 Est GFR (Non-Af Amer) > 60 12/18/18 06:10 Random Glucose 105 mg/dL (70-110) 12/18/18 06:10 Hemoglobin A1c 5.8 % (4.2-6.5) 12/13/18 22:45 Calcium 9.1 mg/dL (8.4-10.5) 12/18/18 06:10 Phosphorus 3.4 mg/dL (2.5-4.5) 12/14/18 06:45 Magnesium 2.0 mg/dL (1.7-2.2) 12/14/18 06:45 Total Bilirubin 0.4 mg/dL (0.2-1.3) 12/18/18 06:10 AST 40 U/L (14-36) H 12/18/18 06:10 ALT 89 U/L (7-56) H 12/18/18 06:10 Alkaline Phosphatase 74 U/L (38-126) 12/18/18 06:10 Troponin I < 0.01 ng/mL 12/13/18 18:00 Total Protein 6.9 g/dL (5.8-8.3) 12/18/18 06:10 Albumin 3.7 g/dL (3.0-4.8) 12/18/18 06:10 Globulin 3.2 gm/dL 12/18/18 06:10 Albumin/Globulin Ratio 1.2 (1.1-1.8) 12/18/18 06:10 Triglycerides 113 mg/dL (35-160) 12/13/18 18:35 Cholesterol 240 mg/dL (130-200) H 12/13/18 18:35 LDL Cholesterol Direct 118 mg/dL (0-129) 12/13/18 18:35 HDL Cholesterol 76 mg/dL (29-60) H 12/13/18 18:35 Amylase 2364 U/L (35-125) H 12/13/18 18:35 Lipase 7844 U/L (23-300) H 12/14/18 06:45 Procalcitonin 0.07 NG/ML (0.19-0.49) L 12/13/18 18:00 Urine Color Yellow (YELLOW) 12/15/18 20:47 Urine Appearance Clear (CLEAR) 12/15/18 20:47 Urine pH 6.0 (4.7-8.0) 12/15/18 20:47 Ur Specific [place] 1.015 (1.005-1.035) 12/15/18 20:47 Urine Protein Negative mg/dL (<30 mg/dL) 12/15/18 20:47 Urine Glucose (UA) Negative mg/dL (NEGATIVE) 12/15/18 20:47 Urine Ketones Negative mg/dL (NEGATIVE) 12/15/18 20:47 Urine Blood Negative (NEGATIVE) 12/15/18 20:47 Urine Nitrate Negative (NEGATIVE) 12/15/18 20:47 Urine Bilirubin Negative (NEGATIVE) 12/15/18 20:47 Urine Urobilinogen 0.2 E.U./dL (<1 E.U./dL) 12/15/18 20:47 Ur Leukocyte Esterase Negative Lien/uL (NEGATIVE) 12/15/18 20:47 Urine Opiates Screen Positive (NEGATIVE) H 12/14/18 17:59 Urine Methadone Screen Negative (NEGATIVE) 12/14/18 17:59 Ur Barbiturates Screen Negative (NEGATIVE) 12/14/18 17:59 Ur Phencyclidine Scrn Negative (NEGATIVE) 12/14/18 17:59 Ur Amphetamines Screen Negative (NEGATIVE) 12/14/18 17:59 U Benzodiazepines Scrn Negative (NEGATIVE) 12/14/18 17:59 U Oth Cocaine Metabols Negative (NEGATIVE) 12/14/18 17:59 U Cannabinoids Screen Negative (NEGATIVE) 12/14/18 17:59 Alcohol, Quantitative < 10 mg/dL (0-10) 12/13/18 18:00 Hepatitis A IgM Ab Negative (NEGATIVE) 12/13/18 18:00 Hep Bs Antigen Negative (NEGATIVE) 12/13/18 18:00 Hep B Core IgM Ab Negative (NEGATIVE) 12/13/18 18:00 Hepatitis C Antibody Negative (NEGATIVE) 12/13/18 18:00 - Hospital Course Hospital Course: Discharge Summary and Hospital Course for Dr. Villafana Upon Admission Patient is a 63 year old female with no significant past medical history presenting with chief complaint of epigastric abdominal pain which began night prior to admission and woke her up from sleep. Pain was constant and radiated to the back. Patient admitted to associated nausea, non bloody nonbilious vomiting, and four episodes of diarrhea. CT abdomen/pelvis shows marked acute pancreatitis, questionable acute cholecystitis, CBD dilatation, hiatal hernia. Abd U/S shows gallstones, dilatation of distal CBD of 1.2 cm. Patient was subsequently admitted for gallstone pancreatitis and surgical evaluation. Please see Patient's chart for details. Hospital Course: Patient was placed NPO and IVF administered. Patient was given zofran for na usea/vomiting. Surgery (Dr. Harrell consulted). Per surgery recommendations, Patient underwent laparoscopic cholecystectomy. Patient was also found to have right lung infiltrate on CXR and was treated for pneumonia with rocephin and zithromax during hospitalization empirically. Please see chart for details. Day of Discharge: Patient is s/p laparoscopic cholecystectomy POD-[address] Harrell. Patient had no acute events overnight. Patient without new complaints. Patient able to ambulate without assitance. Patient denied pain. Patient is medically optimized and clinically stable for discharge to home.Patient was provided with detailed discharge instructions provided both in writing and verbally to the level of Patient's comphrension. Patient both understands and agrees to all instructions. Please see chart for details. Please see chart for details. Patient was discharged on oral course of antibiotics (Levofloxacin 500mg PO BID x3 days) Patient seen and case discussed in detail with Dr. Ledy Reno Discharge Exam - Additional Findings Additional findings: - Constitutional Appears: Non-toxic, No Acute Distress - Head Exam Head Exam: ATRAUMATIC, NORMOCEPHALIC - Eye Exam Eye Exam: EOMI, Normal appearance, PERRL Pupil Exam: NORMAL ACCOMODATION, PERRL - ENT Exam ENT Exam: Mucous Membranes Moist, Normal Exam - Neck Exam Neck Exam: Full ROM, Normal Inspection - Respiratory Exam Respiratory Exam: Clear to Ausculation Bilateral, NORMAL BREATHING PATTERN. absent: Accessory Muscle Use, Chest Wall Tenderness, Decreased Breath Sounds, Prolonged Expiratory Phase, Rales, Rhonchi, Wheezes, Respiratory Distress, Stridor - Cardiovascular Exam Cardiovascular Exam: REGULAR RHYTHM, RRR, +S1, +S2. absent: Bradycardia, Tachycardia, Clicks, Diastolic murmur, Gallop, Irregular Rhythm, JVD, Rubs, +S4, Murmur - GI/Abdominal Exam GI & Abdominal Exam: Soft. surgical site clean in tact and without any bloody discharge. No drains. Normal Bowel Sounds. absent: Distended, Firm, Guarding, Rigid, Mass, Rebound - Extremities Exam Extremities Exam: absent: Calf Tenderness - Neurological Exam Neurological Exam: Alert, Awake, Oriented x3 - Psychiatric Exam Psychiatric exam: Normal Affect, Normal Mood - Skin Skin Exam: Dry, Intact, Normal Color, Warm Discharge Plan - Discharge Medications Prescriptions: RX: levoFLOXacin [Levaquin] 500 mg PO DAILY #6 tab - Follow Up Plan Condition: GUARDED Disposition: HOME/ ROUTINE Instructions: Cholecystectomy (DC) Additional Instructions: 1. Follow up with your primary doctor within 1 week of discharge. 2. Continue to take your medications as prescribed. 3. Return to the emergency room should you have a worsening of your symptoms. <Geetha Villafana - Last Filed: 12/20/18 15:08> Provider - Provider Date of Admission: 12/15/18 13:01 Attending physician: Geetha Villafana MD Consults: 12/13/18 22:36 General Surgery Consult Routine Comment: Consulting Provider: Harmeet Harrell Consulting Physician: Harmeet Harrell Reason for Consult: poss cholecystitis in the setting of acute pancreatitis Hospital Course - Lab Results Lab Results: Micro Results 12/13/18 22:30 Blood-Venous Blood Culture - Final NO GROWTH AFTER 5 DAYS 12/13/18 22:30 Blood-Venous Gram Stain - Final TEST NOT PERFORMED 12/13/18 22:30 Blood-Venous Blood Culture - Final NO GROWTH AFTER 5 DAYS 12/13/18 22:30 Blood-Venous Gram Stain - Final TEST NOT PERFORMED Most Recent Lab Values WBC 6.3 10^3/uL (4.5-11.0) 12/18/18 06:10 RBC 3.95 10^6/uL (3.5-6.1) 12/18/18 06:10 Hgb 11.2 g/dL (12.0-16.0) L 12/18/18 06:10 Hct 34.1 % (36.0-48.0) L 12/18/18 06:10 MCV 86.3 fl (80.0-105.0) 12/18/18 06:10 MCH 28.4 pg (25.0-35.0) 12/18/18 06:10 MCHC 32.8 g/dl (31.0-37.0) 12/18/18 06:10 RDW 13.4 % (11.5-14.5) 12/18/18 06:10 Plt Count 221 10^3/uL (120.0-450.0) 12/18/18 06:10 MPV 8.8 fl (7.0-11.0) 12/18/18 06:10 Neut % (Auto) 63.4 % (50.0-68.0) 12/18/18 06:10 Lymph % (Auto) 25.1 % (22.0-35.0) 12/18/18 06:10 [place] % (Auto) 5.9 % (1.0-6.0) 12/18/18 06:10 Eos % (Auto) 5.1 % (1.5-5.0) H 12/18/18 06:10 Baso % (Auto) 0.5 % (0.0-3.0) 12/18/18 06:10 Lymph # (Auto) 1.6 (1.2-3.4) 12/18/18 06:10 [place] # (Auto) 0.4 (0.1-0.6) 12/18/18 06:10 Eos # (Auto) 0.3 (0.0-0.7) 12/18/18 06:10 Baso # (Auto) 0.03 K/mm3 (0.0-2.0) 12/18/18 06:10 Absolute Neuts (auto) 4.00 (1.4-6.5) 12/18/18 06:10 PT 13.0 SECONDS (9.4-12.5) H 12/17/18 06:45 INR 1.15 12/17/18 06:45 APTT 32.4 Seconds (26.9-38.3) 12/17/18 06:45 Sodium 139 mmol/L (132-148) 12/18/18 06:10 Potassium 4.1 mmol/L (3.6-5.0) 12/18/18 06:10 Chloride 104 mmol/L (98-107) 12/18/18 06:10 Carbon Dioxide 31 mmol/L (21-33) 12/18/18 06:10 Anion Gap 9 (10-20) L 12/18/18 06:10 BUN 7 mg/dL (7-21) 12/18/18 06:10 Creatinine 0.8 mg/dl (0.7-1.2) 12/18/18 06:10 Est GFR ( Amer) > 60 12/18/18 06:10 Est GFR (Non-Af Amer) > 60 12/18/18 06:10 Random Glucose 105 mg/dL (70-110) 12/18/18 06:10 Hemoglobin A1c 5.8 % (4.2-6.5) 12/13/18 22:45 Calcium 9.1 mg/dL (8.4-10.5) 12/18/18 06:10 Phosphorus 3.4 mg/dL (2.5-4.5) 12/14/18 06:45 Magnesium 2.0 mg/dL (1.7-2.2) 12/14/18 06:45 Total Bilirubin 0.4 mg/dL (0.2-1.3) 12/18/18 06:10 AST 40 U/L (14-36) H 12/18/18 06:10 ALT 89 U/L (7-56) H 12/18/18 06:10 Alkaline Phosphatase 74 U/L (38-126) 12/18/18 06:10 Troponin I < 0.01 ng/mL 12/13/18 18:00 Total Protein 6.9 g/dL (5.8-8.3) 12/18/18 06:10 Albumin 3.7 g/dL (3.0-4.8) 12/18/18 06:10 Globulin 3.2 gm/dL 12/18/18 06:10 Albumin/Globulin Ratio 1.2 (1.1-1.8) 12/18/18 06:10 Triglycerides 113 mg/dL (35-160) 12/13/18 18:35 Cholesterol 240 mg/dL (130-200) H 12/13/18 18:35 LDL Cholesterol Direct 118 mg/dL (0-129) 12/13/18 18:35 HDL Cholesterol 76 mg/dL (29-60) H 12/13/18 18:35 Amylase 2364 U/L (35-125) H 12/13/18 18:35 Lipase 7844 U/L (23-300) H 12/14/18 06:45 Procalcitonin 0.07 NG/ML (0.19-0.49) L 12/13/18 18:00 Urine Color Yellow (YELLOW) 12/15/18 20:47 Urine Appearance Clear (CLEAR) 12/15/18 20:47 Urine pH 6.0 (4.7-8.0) 12/15/18 20:47 Ur Specific [place] 1.015 (1.005-1.035) 12/15/18 20:47 Urine Protein Negative mg/dL (<30 mg/dL) 12/15/18 20:47 Urine Glucose (UA) Negative mg/dL (NEGATIVE) 12/15/18 20:47 Urine Ketones Negative mg/dL (NEGATIVE) 12/15/18 20:47 Urine Blood Negative (NEGATIVE) 12/15/18 20:47 Urine Nitrate Negative (NEGATIVE) 12/15/18 20:47 Urine Bilirubin Negative (NEGATIVE) 12/15/18 20:47 Urine Urobilinogen 0.2 E.U./dL (<1 E.U./dL) 12/15/18 20:47 Ur Leukocyte Esterase Negative Lien/uL (NEGATIVE) 12/15/18 20:47 Urine Opiates Screen Positive (NEGATIVE) H 12/14/18 17:59 Urine Methadone Screen Negative (NEGATIVE) 12/14/18 17:59 Ur Barbiturates Screen Negative (NEGATIVE) 12/14/18 17:59 Ur Phencyclidine Scrn Negative (NEGATIVE) 12/14/18 17:59 Ur Amphetamines Screen Negative (NEGATIVE) 12/14/18 17:59 U Benzodiazepines Scrn Negative (NEGATIVE) 12/14/18 17:59 U Oth Cocaine Metabols Negative (NEGATIVE) 12/14/18 17:59 U Cannabinoids Screen Negative (NEGATIVE) 12/14/18 17:59 Alcohol, Quantitative < 10 mg/dL (0-10) 12/13/18 18:00 Hepatitis A IgM Ab Negative (NEGATIVE) 12/13/18 18:00 Hep Bs Antigen Negative (NEGATIVE) 12/13/18 18:00 Hep B Core IgM Ab Negative (NEGATIVE) 12/13/18 18:00 Hepatitis C Antibody Negative (NEGATIVE) 12/13/18 18:00 Attending/Attestation - Attestation I have personally seen and examined this patient.: Yes I have fully participated in the care of the patient.: Yes I have reviewed all pertinent clinical information, including history, physical exam and plan: Yes Notes (Text): 12/20/18 15:05 Medical record note made by the resident after discussion with my direction and input after the patient was personally seen and examined by me. I have reviewed the chart and agree that the record accurately reflects by personal performance of the history, physical exam, data review, and medical decision-making, in the course for the patient. I have also personally directed the plan of care 63 year old female with no significant past medical history who presented with abdominal pain found to have acute gallstone pancreatitis and transaminitis. Patient underwent laproscopic cholecystectomy 12/17/18. She is tolerating diet.LFT are improving Patient is tolerating diet. She is on Levofloxacin for Pneumonia. She will be discharged home and will follow up with PCP and surgery. Management plan was discussed in detail with patient. Education was provided. 12/20/18 15:07
== END 2018-12-19 16:26 | disposition home or self-care (01) | DRG 263 ==
LOC: ED 17:00 → ERH 21:36 → 3RSO 23:41 → OBSVTOIN 12-15 13:01
PROVIDERS: ADMIT Hospitalist; ATTEND Internal Medicine
PROC: 0FT44ZZ Resection of Gallbladder, Percutaneous Endoscopic Approach (ICD-10-PCS; principal; 2018-12-17 07:30)
DX: K85.10 Biliary acute pancreatitis without necrosis or infection (principal); J18.1 Lobar pneumonia, unspecified organism; Z87.891 Personal history of nicotine dependence